=== PATIENT | female | born 1940 | race Caucasian/White ===

== ENCOUNTER → 2017-12-23 08:57 | Outpatient (CLI) | payer MEDICARE, SELFPAY ==
--- NOTE | 2017-12-23 | DI.MG.S_ITS ---
BILATERAL DIGITAL SCREENING MAMMOGRAM 3D/2D WITH CAD: 12/23/2017 CLINICAL: Routine screening. Comparison is made to exams dated: 11/26/2016 mammogram, 04/13/2014 mammogram, and 04/12/2013 mammogram - [facility]. The tissue of both breasts is heterogeneously dense. This may lower the sensitivity of mammography. Current study was also evaluated with a Computer Aided Detection (CAD) system. No significant masses, calcifications, or other findings are seen in either breast. There has been no significant interval change. IMPRESSION: NEGATIVE There is no mammographic evidence of malignancy. A 1 year screening mammogram is recommended. This exam was interpreted at Station ID: [id number]. NOTE: For mammograms, a report in lay terms will be sent to the patient. Approximately 15% of breast malignancies will not be visualized mammographically. In the management of a palpable breast mass, a negative mammogram must not discourage biopsy of a clinically suspicious lesion. Electronically Signed By: Mode gates/toni:12/23/2017 12:49:15 letter sent: Normal Exam ACR BI-RADS Category 1: Negative 3341F
== END ==
PROVIDERS: Family Provider Family Medicine; PCP Family Medicine; Visit Provider Family Medicine
DX: Z12.31 Encounter for screening mammogram for malignant neoplasm of breast (principal)
CPT/HCPCS: 77063; 77067

== ENCOUNTER → 2018-12-26 12:04 | Outpatient (CLI) | payer MEDICARE, SELFPAY ==
--- NOTE | 2018-12-26 | DI.MG.S_ITS ---
BILATERAL DIGITAL SCREENING MAMMOGRAM 3D/2D WITH CAD: 12/26/2018 CLINICAL: Routine screening. Comparison is made to exams dated: 12/23/2017 mammogram, 11/26/2016 mammogram, and 04/13/2014 mammogram - [facility]. The tissue of both breasts is heterogeneously dense. This may lower the sensitivity of mammography. Current study was also evaluated with a Computer Aided Detection (CAD) system. There are benign calcifications in both breasts. No significant masses, calcifications, or other findings are seen in either breast. There has been no significant interval change. IMPRESSION: There is no mammographic evidence of malignancy. A 1 year screening mammogram is recommended. This exam was interpreted at Station ID: [id number]. NOTE: For mammograms, a report in lay terms will be sent to the patient. Approximately 15% of breast malignancies will not be visualized mammographically. In the management of a palpable breast mass, a negative mammogram must not discourage biopsy of a clinically suspicious lesion. Electronically Signed By: Antonino azul/toni:12/26/2018 12:54:51 letter sent: Normal Exam ACR BI-RADS Category 2: Benign Finding(s) 3342F
== END ==
PROVIDERS: PCP Family Medicine; Visit Provider Family Medicine
DX: Z12.31 Encounter for screening mammogram for malignant neoplasm of breast (principal)
CPT/HCPCS: 77063; 77067

== ENCOUNTER → 2019-01-04 13:44 | Outpatient (CLI) | payer MEDICARE, SELFPAY | PROVIDERS: PCP Family Medicine; Visit Provider Family Medicine | DX: M85.851 Other specified disorders of bone density and structure, right thigh (principal); Z78.0 Asymptomatic menopausal state; E07.9 Disorder of thyroid, unspecified; Z90.722 Acquired absence of ovaries, bilateral | CPT/HCPCS: 77080 ==

== ENCOUNTER → 2020-01-12 13:51 | Outpatient (CLI) | payer MEDICARE, SELFPAY ==
[2020-01-14 19:06] LABS: COVID19 Sendout Not Detected (Not Detect)
== END ==
PROVIDERS: PCP Family Medicine; Visit Provider Physician Assistant
DX: Z01.818 Encounter for other preprocedural examination (principal)
CPT/HCPCS: 87635

== ENCOUNTER → 2020-01-19 14:49 | Outpatient (CLI) | payer MEDICARE, SELFPAY ==
[2020-01-22 20:27] LABS: COVID19 Sendout Not Detected (Not Detect)
== END ==
PROVIDERS: PCP Family Medicine; Visit Provider Physician Assistant
DX: Z11.59 Encounter for screening for other viral diseases (principal)
CPT/HCPCS: 87635

== ENCOUNTER → 2020-01-25 07:48 | Outpatient (CLI) | payer MEDICARE, SELFPAY ==
--- NOTE | 2020-01-25 | DI.ECHO.S_ITS ---
[place] [facility]---------+ [facility] +---------+ : : [address] : : : : [id number] : : : : Phone: [phone]+ Echocardiogram Report + + :Name: JIMMY SAVAGE Study Date: 01/25/2020 Height: 63 in : :[facility] Weight: 149 lb : : Gender: Female BSA: 1.7 m2 : :: 1940 Age: 79 yrs BP: 145/88 mmHg: :Reason For Study: DYSPNEA : :Ordering Physician: MIKE, : :ANNA Performed By: Laura Fontanez : :Referring: ANNA MCKEON : + + Interpretation Summary The left ventricle is normal in size and wall thickness. The left ventricular ejection fraction is normal. Diastolic parameters suggest a relaxation abnormality of the left ventricle, consistent with probable normal filling pressures.However, mitral annular tissue velocities are decreased. The right ventricle is normal in size and function. The right ventricular systolic pressure is estimated to be at least 22 mmHg based on an estimated right atrial pressure of 3 mm Hg. Both atria are normal in size. There is mild mitral regurgitation. There is mild aortic regurgitation. There is no prior echocardiogram noted for this patient. Procedure: A two-dimensional transthoracic echocardiogram with color flow and Doppler was performed. The study quality was technically adequate. There is no prior echocardiogram noted for this patient. The heart rate ranged between 55-71 bpm during the study. Left Ventricle: The left ventricle is normal in size and wall thickness. The ejection fraction is estimated to be 60-65%. The left ventricular ejection fraction is normal. There are no focal wall motion abnormalities. Diastolic parameters suggest a relaxation abnormality of the left ventricle, consistent with probable normal filling pressures. However, mitral annular tissue velocities are decreased. Right Ventricle: The right ventricle is normal in size and function. Atria: Both atria are normal in size. There is no Doppler evidence for an interatrial shunt. Mitral Valve: The mitral valve leaflets appear normal. There is no evidence of stenosis, fluttering, or prolapse. There is mild mitral regurgitation. Aortic Valve: The aortic valve is trileaflet. The aortic valve opens well. There is no aortic valve stenosis. There is mild aortic regurgitation. Tricuspid Valve: The tricuspid valve is normal in structure and function. There is mild to moderate tricuspid regurgitation. The right ventricular systolic pressure is estimated to be at least 22 mmHg based on an estimated right atrial pressure of 3 mm Hg. Pulmonic Valve: The pulmonic valve is not well visualized. There is trace pulmonic regurgitation. Great Vessels: The aortic root is normal size. The ascending aorta is mildly enlarged. The IVC is of normal diameter and collapses greater than 50% with a sniff. This suggests a low right atrial pressure of 3 mm Hg. Pericardium/ Pleura There is no pericardial effusion. There is no pleural effusion. MMode/2D Measurements & Calculations LVIDd: 4.3 cm LVOT diam: 2.0 cm LVIDs: 2.7 cm Ao root diam: 2.8 cm FS: 37.9 % asc Aorta Diam: 3.5 cm EPSS: 0.80 cm Ao Arch Diam (Prox Trans): 2.8 cm IVSd: 1.0 cm LVPWd: 0.82 cm LV ponce. diameter/BSA (cm/m^2): 2.5 LV sys. diameter/BSA (cm/m^2): 1.6 LA A2 area: 19.3 cm2 RA long axis: 4.2 cm LA A4 area: 15.5 cm2 RA area: 15.1 cm2 LA length (vol): 4.7 cm RA vol: 46.2 ml LA vol: 54.2 ml RA : 27.1 ml/m2 LA vol index: 31.7 ml/m2 IVC diam: 1.1 cm RVD1 (basal): 3.1 cm TAPSE: 2.2 cm Doppler Measurements & Calculations Ao V2 max: 116.1 cm/sec LVOT Max Giovanny: 97.0 cm/sec Ao V2 mean: 82.4 cm/sec LV V1 max P.8 mmHg Ao max P.4 mmHg LV V1 VTI: 22.1 cm Ao mean P.0 mmHg DYLAN(I,D): 2.5 cm2 Ao V2 VTI: 27.3 cm DYLAN(V,D): 2.6 cm2 sev ratio: 0.81 DYLAN indexed to BSA (cm^2/m^2): 1.5 MV E max giovanny: 55.3 cm/sec TR max giovanny: 219.3 cm/sec MV A max giovanny: 84.4 cm/sec TR max P.2 mmHg MV E/A: 0.65 PA V2 max: 56.4 cm/sec Med Peak E' Giovanny: 3.1 cm/sec PA V2 mean: 36.4 cm/sec E/E' med: 17.9 PA mean P.62 mmHg Lat Peak E' Giovanny: 3.6 cm/sec PA pr(Accel): 19.1 mmHg E/E' lat: 15.2 E/e' average: 16.6 MV dec time: 0.33 sec SV(LVOT): 68.5 ml Electronically signed by: Jesus Alcantara M.D. on Reading Physician:01/25/2020 10:48 AM
== END ==
PROVIDERS: PCP Family Medicine; Referring Provider Family Medicine; Visit Provider Family Medicine
DX: I08.3 Combined rheumatic disorders of mitral, aortic and tricuspid valves (principal); R06.09 Other forms of dyspnea; I77.89 Other specified disorders of arteries and arterioles
CPT/HCPCS: 93306

== ENCOUNTER → 2020-02-28 10:32 | Outpatient (CLI) | payer MEDICARE, SELFPAY ==
--- NOTE | 2020-02-28 10:47 | DI.MG.S_ITS ---
Patient Name: JIMMY SAVAGE date: 1940 Sex: F Attending Physician: Zahra Indications: Date: 02/28/2020 10:37 At the request of: ANNA MCKEON Procedure: MM screening mammo BI BILATERAL DIGITAL SCREENING MAMMOGRAM 3D/2D WITH CAD: 02/28/2020 CLINICAL: Routine screening. Comparison is made to exams dated: 12/26/2018 mammogram, 12/23/2017 mammogram, and 11/26/2016 mammogram - [facility]. The tissue of both breasts is heterogeneously dense. This may lower the sensitivity of mammography. Current study was also evaluated with a Computer Aided Detection (CAD) system. There is a focal asymmetry in the left breast at 4 o'clock posterior depth. There also is a focal asymmetry in the left breast at 10 o'clock middle depth. No other significant masses, calcifications, or other findings are seen in either breast. IMPRESSION: INCOMPLETE: NEEDS ADDITIONAL IMAGING EVALUATION The focal asymmetry in the left breast at 4 o'clock posterior depth is indeterminate. Additional views with possible ultrasound are recommended. The focal asymmetry in the left breast at 10 o'clock middle depth is indeterminate. Additional views with possible ultrasound are recommended. This exam was interpreted at Station ID: [id number]. NOTE: For mammograms, a report in lay terms will be sent to the patient. Approximately 15% of breast malignancies will not be visualized mammographically. In the management of a palpable breast mass, a negative mammogram must not discourage biopsy of a clinically suspicious lesion. Electronically Signed By: Angeles ortega/toni:02/28/2020 11:29:40 Continued Report - Page 2 of 2 Patient Name: JIMMY SAVAGE date: 1940 Sex: F Attending Physician: Zahra Indications: Date: 02/28/2020 10:37 At the request of: ANNA MCKEON Procedure: MM screening mammo BI letter sent: Additional Imaging Needed ACR BI-RADS Category 0: Incomplete 3340F
== END ==
PROVIDERS: PCP Family Medicine; Referring Provider Family Medicine; Visit Provider Family Medicine
DX: Z12.31 Encounter for screening mammogram for malignant neoplasm of breast (principal)
CPT/HCPCS: 77063; 77067

== ENCOUNTER → 2020-04-14 08:39 | Outpatient (CLI) | payer MEDICARE, SELFPAY ==
[2020-04-15 16:02] LABS: COVID19 Sendout Not Detected (Not Detect)
== END ==
PROVIDERS: PCP Family Medicine; Visit Provider Physician Assistant
DX: Z11.59 Encounter for screening for other viral diseases (principal)
CPT/HCPCS: 87635

== ENCOUNTER → 2020-04-17 07:00 | Outpatient (CLI) | payer MEDICARE, SELFPAY ==
--- NOTE | 2020-04-17 | DI.MG.S_ITS ---
PROCEDURE: MM DIAGNOSTIC MAMMO UNILAT LT2D COMPARISON: None. INDICATIONS: LEFT BREAST MASS FINDINGS: IMPRESSION: Dictated by: Zara Kim MD, PhD on 04/17/2020 at 9:36 Approved by: Zara Kim MD, PhD on 04/17/2020 at 9:36
--- NOTE | 2020-04-17 | DI.MG.S_ITS ---
SPECIMEN LEFT BREAST: 04/17/2020 CLINICAL: Left breast mass. Correlation is made to exams dated: 04/17/2020 mammogram, 04/17/2020 localization - [facility], 03/15/2020 ultrasound biopsy, 03/11/2020 mammogram - [facility], and 02/28/2020 mammogram - [facility]. A surgical biopsy specimen was imaged for the mass located in the left breast at 4 o'clock posterior depth. IMPRESSION: SPECIMEN The imaged specimen includes a biopsy clip and the distal portion of the localization wire. Future imaging is recommended as follows: 09/08/2020 left mammogram and an ultrasound. This exam was interpreted at Station ID: [id number]. Zara santana/toni:04/19/2020 16:22:45
--- NOTE | 2020-04-17 07:05 | DI.US.S_ITS ---
PROCEDURE: US BREAST NEEDLE LOC LT COMPARISON: None. INDICATIONS: PRE-OP WIRE LOCALIZATION FINDINGS: IMPRESSION: Dictated by: Zara Kim MD, PhD on 04/17/2020 at 9:39 Approved by: Zara Kim MD, PhD on 04/17/2020 at 9:39
== END ==
PROVIDERS: PCP Family Medicine; Referring Provider Surgery; Visit Provider Surgery
DX: N63.23 Unspecified lump in the left breast, lower outer quadrant (principal); N63.20 Unspecified lump in the left breast, unspecified quadrant
CPT/HCPCS: 19285; 76098; 77065

== ENCOUNTER 2020-04-17 07:09 | Day surgery (SDC) | payer MEDICARE, SELFPAY ==
[2020-04-15 10:50] VITALS: BMI 25.2
--- NOTE | 2020-04-17 | PATH_ITS ---
[facility] Accession Number: [id number] . 01 Material submitted: . PART A: breast - LEFT BREAST PART B: breast - MEDIAL MARGIN . 01 Clinical history: . A: LEFT BREAST MASS SHORT SINGLE STITCH MEDIAL LONG STITCH LATERAL, DOUBLE STITCH DEEP. . 02 Diagnosis: A. Left Breast, Lumpectomy: 1. 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 2. Focal atypical lobular hyperplasia. 3. Fibroadenoma, hyalinized. 4. Fibrocystic changes including apocrine metaplasia, duct ectasia, microcysts, and florid hyperplasia. 5. Microcalcifications present in association with nonneoplastic breast tissue 6. Changes consistent with prior biopsy. 7. Negative for atypical hyperplasia, in situ, or invasive carcinoma. . . B. Medial Margin, Excision: Benign breast tissue with fibrocystic changes including usual ductal hyperplasia, apocrine metaplasia, and microcysts. Negative for atypical hyperplasia, in situ and invasive carcinoma. [facility] 04/26/2020 0821 Local . 02 Comment: As part of routine director of quality improvement, Dr. Ortiz also reviewed part A1-A14 and IHCs and agrees with the interpretation of intraductal papilloma with usual ductal hyperplasia. . 02 Electronically signed: . Abiola Chavez MD, Pathologist NPI- [id number] . 01 Gross description: . A. Specimen A is received in formalin, labeled left breast mass and consists of a lumpectomy specimen. . Weight: 21 grams. Measurement: 2.2 cm from anterior to posterior, 6.2 cm from medial to lateral, and 4.2 cm from superior to inferior. Skin Ellipse: Absent. Wire: Present, free floating within the specimen container. Margins: Posterior black, anterior red, superior blue, inferior green, medial yellow, and lateral orange. The specimen is serially sectioned from lateral to medial into sixteen slices. Lesion: 0.5 x 0.4 x 0.4 cm gómez-white biopsy site with a filter metallic, circular biopsy marker (slices 3 and 4). Distance to Margin: 0.5 cm from anterior, 0.3 cm from inferior, 0.8 cm from posterior, 1.6 cm from superior, 1.0 cm from lateral and greater than 3 cm from medial. Other: The remaining cut surfaces are composed of approximately 75% gómez-yellow adipose tissue and 25% gómez-white fibrous tissue. Multiple cysts are located throughout the adipose tissue, ranging from 0.1 to 0.2 cm. The specimen is entirely submitted. . A1 - Slice 1, lateral margin, perpendicularly sectioned. A2 - Slice 2, immediately lateral to biopsy site. A3 - Slice 3, biopsy site in relation to anterior, inferior, and posterior margins. A4 - Remainder of slice 3, superior, anterior and posterior margins. A5 - Slice 4, biopsy site in relation to anterior, inferior and deep margins. A6 - Remainder of slice 4, superior, anterior and posterior margins. A7-A8 - Slice 5, immediately medial to biopsy site. A9 - Slice 6. A10-A11 - Slice 7, bisected. A12-A13 - Slice 8, bisected. A14-A15 - Slice 9, bisected. A16-A17 - Slice 10, bisected. A18-A19 - Slice 11, bisected. A20 - Slice 12, bisected. A21 - Slice 13. A22 - Slice 14. A23 - Slice 15. A24 - Slice 16, medial margin, perpendicularly sectioned. . Formalin fixation time: Approximately 26 hours. B. Specimen B is received in formalin, labeled medial margin and consists of two gómez-yellow fragments of fibroadipose tissue, measuring 3.0 x 3.0 x 1.5 cm in aggregate. The specimen is inked blue, serially sectioned and entirely submitted in cassettes B1-B3. (EA:[id number]) /[facility] 04/18/[address] [place] [address] . Microscopic: . Immunohistochemical stains were performed to characterize cells of interest. All control stains showed appropriate reactivity. . Block A7: P63 and myosin highlight myoepithelial cells surrounding area of interest, and a continuous pattern within the papilloma. Estrogen Receptor and CK5/6 were performed to characterize the proliferative ductal cells in an area of interest, and although the area of interest is not represented on the deeper levels, the stains highlight the ductal proliferation in a heterogenous pattern. . Block A14: E-cadherin stain is negative in cells of interest, consistent with atypical lobular hyperplasia. . Blocks A5, A7, B3: Additional levels were examined. . Interpretation: A7: The pattern of p63 and myosin expression is consistent with an intraductal proliferation. The heterogeneous pattern of ER and CK5/6 is consistent with a nonclonal ductal proliferation. . * This test was developed and its performance characteristics determined by [employer]. It has not been cleared or approved by the U.S. Food and Drug Administration. The FDA has determined that such clearance or approval is not necessary. This test is used for clinical purposes. It should not be regarded as investigational or for research. . 02 Pathologist provided ICD-10: N63.20, N64.9 . 02 CPT . 372193, 041747, B74986, D66152 Performed at: 01 [facility] [address] [id number] MD Matt Johnson MD Phone: [phone] Performed at: 02 [facility] [id number] [place] [id number] MD Abiola Chavez MD Phone: [phone]
[2020-04-17 07:29] VITALS: BP 116/64; PULSE 74; RESP 16; TEMP 37.2; O2SAT 97; BMI 25.0
--- NOTE | 2020-04-17 09:15 | SUR.PREOP ---
PT RETURNED FROM DI VIA W/C. PT TRANSFERRED SELF BACK INTO STRETCHER WITHOUT ANY DIFFICULTLY. PT BED IN LOWEST POSITION AND CALL LIGHT GIVEN TO PT. PT APPEARS COMFORTABLE AT THIS TIME.
--- NOTE | 2020-04-17 12:31 | PM.PREOP ---
Pre-operative Note COVID-19 COVID-19 status: Negative Result date/Date tested (Pos, Neg/Pending): 04/14/20 Interval Note History & Physical reviewed/Exam performed by Physician: Yes Changes to H&P: No
[2020-04-17] MEDS: CEFAZOLIN 2 GM/100 ML FROZ.PIGGY IV (13:09)
--- NOTE | 2020-04-17 13:34 | SUR.OPER ---
Supine on padded OR bed, head on pillow, arms secured on padded arm boards at <90 degrees abduction, legs uncrossed, safety belt at thigh, tape over blanket over lower legs.
[2020-04-17] MEDS: BUPIVACAINE 0.25% W/ EPI 30 ML VIAL INJ (13:41)
[2020-04-17 14:18] VITALS: BP 110/53; PULSE 91; RESP 12; TEMP 35.9; O2SAT 93
[2020-04-17 14:24] VITALS: BP 106/34; PULSE 86; RESP 16; O2SAT 95
[2020-04-17 14:27] VITALS: BP 109/53; PULSE 88; RESP 15; O2SAT 93
--- NOTE | 2020-04-17 14:32 | P.OP_ITS ---
Operative Date/Time/Diagnoses Date of procedure: 04/17/20 Time of procedure: 14:33 Pre-op diagnosis: Left breast mass Post-op diagnosis: same Procedure & Clinicians Procedure: Left breast lumpectomy Same procedure as scheduled: Yes Indications: Left breast mass with suspicious features, here for definitive excisional biopsy Surgeon: Angela Gaitan Click Yes if Unassisted: Yes Anesthesia Type: General Operative Notes Findings: Clip and wire in the expected position Specimen(s): other (Left breast mass; single short stitch medial, long single stitch lateral, double stitch deep) Estimated Blood Loss (mL): 1 Procedure in detail: The patient was brought into the OR and placed supine on the OR table. Sequential compression devices were placed on both legs and turned on. General anesthesia was induced and the patient was intubated by Dr. Martinez with an LMA. Appropriate perioperative antibiotics were given. Surgical time out was performed. The sterile US probe was used to identify the wire and clip within the breast. The breast was marked for an appropriate incision. Local anesthetic was infiltrated in the skin at this site. A 15 blade was then used to make a 6cm curvilinear incision in the skin at this site. Dissection was carried down through the dermis using a 15 blade. Cautery was then used to dissect to the avascular plane between the subcutaneous fat and the breast tissue. Dissection was carried along this plane using after infiltration of local anesthetic. The localization wire was identified and palpated to its endpoint. The clip was also identified visually and with palpation. Dissection was then carried around the mass, with a small margin. Once the mass was co mpletely dissected out it was delivered from the wound it was marked using silk suture. Double stitch deep, long single stitch lateral, short single stitch medial. Local anesthetic with Marcaine was used to inject the skin and subcutaneous tissue, as well as the chest wall. Good hemostasis was observed. The radiologist then phoned to tell us that the specimen did include the wire and clip as expected. 3-0Vicryl was used to then bring together the subcutaneous fat tissue, and to close the dermis of the breast incision and the axillary incision. 4-0 Monocryl was used to close the skin with a subcuticular suture. The skin was then sealed with dermabond. A breast support was placed on the patient. The patient was then awakened from anesthesia and extubated. Needle sponge and instrument counts were correct x 2. The patient was transferred to the PACU in stable condition. Complications: none Post-operative Condition: stable Disposition: PACU
[2020-04-17 14:37] VITALS: BP 118/50; PULSE 93; RESP 14; TEMP 37; O2SAT 94
[2020-04-17 14:43] VITALS: BP 118/53; PULSE 81; RESP 16; TEMP 36.2; O2SAT 96
--- NOTE | 2020-04-17 14:59 | SUR.PHASEII ---
Ptup and ambulating gait steady, getting dressed after iv dcd site clear, will draft roller picker rx at [facility] per Dr Bustamante direction. all dc instructions givena dn pt verbalizes understanding. No c/0
== END 2020-04-17 14:59 | disposition home or self-care (01) ==
PROVIDERS: PCP Family Medicine; Referring Provider Family Medicine; Visit Provider Surgery
PROC: (CPT 19301; principal; 2020-04-17 11:45)
DX: D24.2 Benign neoplasm of left breast (principal); E03.9 Hypothyroidism, unspecified; I10 Essential (primary) hypertension; Z85.038 Personal history of other malignant neoplasm of large intestine
CPT/HCPCS: 19301; 19285; 76098; 77065; J0690; J1100; J1885; J2405; J2704; J3010

== ENCOUNTER → 2020-12-10 10:49 | Outpatient (CLI) | payer MEDICARE, SELFPAY ==
[2020-12-12 20:36] LABS: Pancreatic Elastase, Fecal 289 (>200)
== END ==
PROVIDERS: Family Provider Family Medicine; PCP Family Medicine; Referring Provider Internal Medicine Gastroenterology; Visit Provider Internal Medicine Gastroenterology
DX: R19.7 Diarrhea, unspecified (principal)
CPT/HCPCS: 82656

== ENCOUNTER → 2020-12-20 13:56 | Outpatient (CLI) | payer MEDICARE, SELFPAY ==
[2020-12-24 15:51] LABS: Calcitonin 6.7 pg/mL (0.0-5.0); Gastrin 18 pg/mL (0-115)
[2020-12-29 09:39] LABS: 5-HIAA, Urine 1.2 mg/L (Undefined)
== END ==
PROVIDERS: Family Provider Family Medicine; PCP Family Medicine; Referring Provider Internal Medicine Gastroenterology; Visit Provider Internal Medicine Gastroenterology
DX: R19.7 Diarrhea, unspecified (principal)
CPT/HCPCS: 36415; 82308; 82570; 82941; 83497; 84586

== ENCOUNTER → 2021-01-11 07:54 | Outpatient (CLI) | payer MEDICARE, SELFPAY ==
[2021-01-11 08:13] LABS: Bacteria Urine None Seen
[2021-01-11 10:27] LABS: Add Manual Diff / Slide Review NO; Basophils Absolute Auto 0 /uL (0-100); Basophils Percent Auto 0.4 % (0-2); Eosinophils Absolute Auto 0 /uL (0-450); Eosinophils Percent Auto 0.8 % (2-4); Hematocrit 40.5 % (36-46); Hemoglobin 13.8 g/dL (12.0-16.0); Lymphocytes Absolute Auto 1300 /uL (1100-4500); Lymphocytes Percent Auto 31.2 % (25-40); Mean Corpuscular Hemoglobin 31.4 PG (26-34); Mean Corpuscular Volume 92.2 fL (80-100); Monocytes Absolute Auto 400 /uL (0-900); Monocytes Percent Auto 8.8 % (3-14); Neutrophils Absolute Auto 2500 /uL (1500-7000); Neutrophils Percent Auto 58.8 % (50-75); Platelet Count 231 X10^3/uL (150-400); Red Blood Cell Count 4.39 X10^6/uL (4.0-5.2); Red Cell Distribution Width 13.7 % (11.6-14.8); White Blood Cell Count 4.3 X10^3/uL (4.5-11.0)
[2021-01-11 10:43] LABS: Appearance Urine UA CLEAR; Bilirubin Urine UA NEGATIVE (NEGATIVE); Color Urine UA YELLOW; Glucose Urine UA NEGATIVE (Negative); Ketones Urine UA NEGATIVE (NEGATIVE); Leukocyte Esterase Urine UA 2+ (NEGATIVE); Nitrite Urine UA NEGATIVE (Negative); Occult Blood Urine UA TRACE-INTACT (Negative); Protein Urine UA NEGATIVE (Negative); Specific Gravity Urine UA <=1.005 (1.000-1.035); Urobilinogen Urine UA 0.2 E.U./dL (0.2)
[2021-01-11 10:44] LABS: Culture Indicated Urine Specimen Cultured; RBC Urine 0-1/HPF (0-5/HPF); Renal Epithelial Cells Urine 0-1/HPF (0-1/HPF); Urine Comments QNS SPINNING; WBC Urine 5-10/HPF (0-5/HPF)
[2021-01-11 10:49] LABS: Alanine Aminotransferase 16 IU/L (<35); Albumin 4.2 g/dL (3.5-5.0); Albumin Globulin Ratio 1.4 (1.0-2.8); Alkaline Phosphatase 80 U/L (38-126); Aspartate Aminotransferase 31 IU/L (14-36); BUN Creatinine Ratio 23.7 (6-22); Bilirubin Total 0.5 mg/dL (0.2-1.3); Blood Urea Nitrogen 14 mg/dL (7-17); Calcium 9.8 mg/dL (8.4-10.2); Carbon Dioxide 29 mmol/L (22-32); Chloride 103 mmol/L (98-107); Estimated Glomerular Filt Rate > 60.0 mL/min (>60); Globulin 2.9 g/dL (1.7-4.1); Glucose 94 mg/dL (80-110); HEMOLYSIS < 15 (0-50); Potassium 4.4 mmol/L (3.4-5.1); Sodium 137 mmol/L (137-145); Total Protein 7.1 g/dL (6.3-8.2); Uric Acid 3.8 mg/dL (2.5-6.2)
[2021-01-11 10:52] LABS: Hemoglobin A1C% w Est Avg Glu 5.4 % (4.0-6.0)
[2021-01-11 11:12] LABS: Free T4, Direct Thyroxine 1.29 ng/dL (0.78-2.19)
[2021-01-11 11:26] LABS: Thyroid Stimulating Hormone 3.97 uIU/mL (0.47-4.68)
[2021-01-11 15:52] LABS: Collection Time Urine 2400 Hours; Total Volume Urine 4800 mL
[2021-01-11 15:53] LABS: Patient Height Urine 184 inches; Patient Weight Urine 150 lbs
[2021-01-11 15:58] LABS: Creatinine, Serum (CRCL) 0.59 mg/dL (0.52-1.04)
[2021-01-11 17:16] LABS: Creatinine Clearance Urine 111.3 mL/MIN; Creatinine Urine Random 19.7 mg/dL; Protein (Total) Urine Random 13 mg/dL (0-12); Total Protein 24 Hour Urine 624 mg/day (42-225)
[2021-01-12 10:58] LABS: Cholesterol HDL Ratio 2.5 ratio (0.0-4.4); Cholesterol,Total 246 mg/dL (100-199); HDL Cholesterol 97 mg/dL (>39); LDL Cholesterol Cal 135 mg/dL (0-99); Triglycerides 83 mg/dL (0-149); VLDL Cholesterol Cal 14 mg/dL (5-40)
[2021-01-14 09:16] LABS: Normetanephrine Total 346 ug/24 hr (131-612); Urine, Metanephrine 21 ug/L (Undefined); Urine, Normetanephrine 72 ug/L (Undefined)
[2021-01-17 08:46] LABS: 5-HIAA, UR 24HR 7.2 mg/24 hr (0.0-14.9); 5-HIAA, Urine 1.5 mg/L (Undefined)
== END ==
PROVIDERS: Family Provider Family Medicine; PCP Family Medicine; Referring Provider Family Medicine; Visit Provider Family Medicine
DX: E89.0 Postprocedural hypothyroidism (principal); I10 Essential (primary) hypertension; R19.7 Diarrhea, unspecified; Z86.39 Personal history of other endocrine, nutritional and metabolic disease
CPT/HCPCS: 36415; 80053; 80061; 81001; 82575; 83036; 83088; 83497; 83835; 84156; 84439; 84443; 84550; 85025; 87086

== ENCOUNTER 2021-01-13 10:30 | Outpatient (RCR) | payer MEDICARE, SELFPAY ==
--- NOTE | 2020-12-05 16:00 | PT.OIE ---
Current Diagnoses Lesion of sciatic nerve, right lower limb (12/05/20) Radiculopathy, lumbar region (12/05/20) Past Medical History (Last Reviewed 05/02/20 @ 11:14 by Angela Gaitan MD) Diverticulosis Headache, migraine History of colon cancer (~2003) Hx of breast lump Past Surgical History (Last Reviewed 05/02/20 @ 11:14 by Angela Gaitan MD) Hx of colectomy (2003) Hx of hysterectomy (~1989) Visit Care Team Role Provider Type Marisel Sweeney MD Attending Provider Physician Family Provider Primary Care Provider Referring Provider Specialty: Family Practice Address: [address] [place] [address], [facility] Email: [email or web address] Physical Therapy Initial Evaluation PT-OP-A Visit Information Start: 12/06/20 10:41 Freq: Status: Active Protocol: Document 12/05/20 16:00 HH (Rec: 12/06/20 11:08 [email or web address]) Out-Patient Physical Therapy Visit Information Visit Information Visit Type Initial Evaluation Visit Start Time 14:30 Visit Stop Time 15:15 Total Visit Minutes 45 Visit Number 07/09 Number of LEARNING AND DEVELOPMENT OFFICER Visits 0 Evaluation Information Evaluation Date 12/05/20 PT-OP-B Current Condition Start: 12/06/20 10:41 Freq: Status: Active Protocol: Document 12/05/20 16:00 HH (Rec: 12/06/20 11:08 [email or web address]) Current Condition History of Current Condition Onset Date June Current Complaints R lateral hip and thigh pain, difficulty to sleep History of Current Condition Renita is a 80yo female here for her R lateral hip and thigh pain since this June. No known injury. She stated her pain started one night while sleeping which her pain located below her greater trochanter and radiates down to lateral knee. Pt is a side sleeper and she realize sleeping on her back tends to relieve her symptoms. Walking for long distance and sitting for a long period of time tends to aggrave her pain as well. She has been taking ibuprofen and stretching her hips for pain management. Treatment Goals Patient/Caregiver Goals 1. to be able to sleep on her R side again PT-OP-C Subjective Start: 12/06/20 10:41 Freq: Status: Active Protocol: Document 12/05/20 16:00 HH (Rec: 12/06/20 11:08 [email or web address]) Patient Questionnaires Lower Extremity Functional Scale LEFS Score 74 LEFS Impairment 1 to 19% Impaired (Score 63-79 ) Oswestry Low Back Index Oswestry Score 16 Oswestry Impairment 1 to 19% Impaired (Score 1-19) OP-PT Pain Assessment Location R lateral hip Pain Location Details below greater trochanter and lateral knee Intensity 6 Scale Used Numeric (0 - 10) Description Aching,Dull,Radiating Pain Aggravating Factors Position,Changing Position, Exercise,Standing,Walking, Stair Climbing Pain Alleviating Factors Inactivity PT-OP-D Balance Start: 12/06/20 10:41 Freq: Status: Active Protocol: Document 12/05/20 16:00 HH (Rec: 12/06/20 11:08 [email or web address]) Balance Tests Single Limb Standing Single Limb- Right 20,50 (tredelenburg sign) Single Limb- Left 16,60 PT-OP-G Mobility & Gait Start: 12/06/20 10:41 Freq: Status: Active Protocol: Document 12/05/20 16:00 HH (Rec: 12/06/20 11:08 [email or web address]) OP Gait Assessment Comments Gait Comments dec stance phase on RLE, mild tredelenburg sign noted. PT-OP-H Neuro Start: 12/06/20 10:41 Freq: Status: Active Protocol: Document 12/05/20 16:00 HH (Rec: 12/06/20 11:08 [email or web address]) Sensation Evaluation Comments Summary Comments mild decreased sensation to LT and pinpick from lateral thigh to lateral gastro Deep Tendon Reflex & Clonus Assessment Deep Tendon Reflex Bilateral Achilles Deep Tendon Reflex 2+ Normal Bilateral Patellar Deep Tendon Reflex 2+ Normal PT-OP-K Range of Motion Start: 12/06/20 10:41 Freq: Status: Active Protocol: Document 12/05/20 16:00 HH (Rec: 12/06/20 11:08 [email or web address]) Hip Goniometric Range of Motion Hip Right Active Straight Leg Raise 63 Internal Rotation 45 External Rotation 36 Comments pt felt significant pulling sensation with figure 4 position Left Active Straight Leg Raise 70 Internal Rotation 40 External Rotation 45 Knee Goniometric Range of Motion Knee Right Knee ROM WFL Yes Comments WFL Left Knee ROM WFL Yes Comments WFL PT-OP-L Special Tests Start: 12/06/20 10:41 Freq: Status: Active Protocol: Document 12/05/20 16:00 (Rec: 12/06/20 11:08 [email or web address]) Special Tests Lumbar Spine Special Tests Slump Test Results -ve Hip Special Tests ELVIA Test Results -ve B Trendelenberg Test Results +VE R Comments during SL stance FADDIR Test Results -ve B COOPER Test Results +VE R Comments pain and stretching at R buttock Scour Test Test Results -ve B Straight Leg Raise Test Results -ve B PT-OP-Q Treatments Start: 12/06/20 10:41 Freq: Status: Active Protocol: Document 12/05/20 16:00 (Rec: 12/06/20 11:08 [email or web address]) Therapeutic Exercises Supine Exercises figure 4 stretch Side right Reps/Minutes 15 sec hold x 5 Comments for hEP PT-OP-T Assessment and Plan Start: 12/06/20 10:41 Freq: Status: Active Protocol: Document 12/05/20 16:00 (Rec: 12/06/20 11:08 [email or web address]) Physical Therapy Assessment Rehab Potential Rehabilitation Potential Excellent Evaluation Complexity Number of Personal Factors/Comorbidities 1-2 Number of Body Systems Impaired 1-2 Clinical Presentation at Evaluation Stable Impairments Impairments Activity Tolerance,Balance, Functional Activities, Functional Mobility,Gait,Pain, Posture,ROM,Soft Tissue Mobility,Strength,Transfers Goals gait Impairment +ve trendelenburg sign Short Term Goal (STG) pt will show improved R hip ER and hip stability to reduce her trendelenburg sign during stance phase STG Duration 4 weeks Halfway Goal (LTG) pt will show improved R hip ER and hip stability to reduce her knee valgus moment during squatting activities. LTG Duration 8 weeks activity tolerance Impairment unable to sit or walk >1 hour Short Term Goal (STG) pt will be able to sit/ walk > 1 hour without increase in discomfort STG Duration 4 weeks Bindery Assistant Goal (LTG) pt will be able to sit/ walk > 2 hour without increase in discomfort LTG Duration 8 weeks sleep Impairment significant pain sleeping on her R side Short Term Goal (STG) pt will show improved pain by being able to sleep on her R side without waking up >3 days a week STG Duration 4 weeks Bindery Assistant Goal (LTG) pt will show improved pain by being able to sleep on her R side without waking up for the entire week LTG Duration 8 weeks Assessment Summary Assessment Renita is a 80 yo active female here for her R lateral hip and knee pain since June. Upon assessment, pt presents symptoms of IT band syndrome whose pain locates mostly at mid IT band to lateral knee joint. She also has trigger point at glute med and TFL region. There's noticeable knee valgus moment with her gait and stand posture (hip Internal rotated with external rotated tibia) She will benefit from skilled therapy to improve her R hip ER, stability, strength to reduce mechanical stress at her IT band. Physical Therapy Plan Frequency and Duration Frequency of Treatment 1-2x/wk Duration of Treatment 8 weeks Plan of Care Start Date 12/06/20 Plan of Care End Date 02/04/21 Therapeutic Interventions Therapeutic Interventions Aquatic Therapy,Balance Training,Gait Training,Home Exercise Program,Joint Mobilizations,Manual Therapy, Neuromuscular Re-education, Patient/Caregiver Education, Self-Care/Home Management,Soft Tissue Mobilization,Taping, Therapeutic Activities, Therapeutic Exercises Modalities Cold Pack/Ice Massage,Electric Stimulation,Hot Packs, Infrared Therapy,Traction- Mechanical,Ultrasound Next Visit Focus/Plan Next Note Type Treatment Note Next Visit Plan review figure4 stretch clamshell lateral quad release bridging open book stretch
--- NOTE | 2020-12-05 16:00 | PT.OPPOC ---
Physical, Occupational & Speech Therapy At [facility] Current Diagnoses Lesion of sciatic nerve, right lower limb (12/05/20) Radiculopathy, lumbar region (12/05/20) Visit Care Team Role Provider Type Marisel Sweeney MD Attending Provider Physician Family Provider Primary Care Provider Referring Provider Specialty: Family Practice Address: [address] [place] [address], [facility] [place], [facility] Email: Plan Of Care PT-OP-T Assessment and Plan Start: 12/06/20 10:41 Freq: Status: Active Protocol: Document 12/05/20 16:00 (Rec: 12/06/20 11:08 [email or web address]) Physical Therapy Assessment Rehab Potential Rehabilitation Potential Excellent Evaluation Complexity Number of Personal Factors/Comorbidities 1-2 Number of Body Systems Impaired 1-2 Clinical Presentation at Evaluation Stable Impairments Impairments Activity Tolerance,Balance, Functional Activities, Functional Mobility,Gait,Pain, Posture,ROM,Soft Tissue Mobility,Strength,Transfers Goals gait Impairment +ve trendelenburg sign Short Term Goal (STG) pt will show improved R hip ER and hip stability to reduce her trendelenburg sign during stance phase STG Duration 4 weeks Drone Operator Goal (LTG) pt will show improved R hip ER and hip stability to reduce her knee valgus moment during squatting activities. LTG Duration 8 weeks activity tolerance Impairment unable to sit or walk >1 hour Short Term Goal (STG) pt will be able to sit/ walk > 1 hour without increase in discomfort STG Duration 4 weeks Retirement Goal (LTG) pt will be able to sit/ walk > 2 hour without increase in discomfort LTG Duration 8 weeks sleep Impairment significant pain sleeping on her R side Short Term Goal (STG) pt will show improved pain by being able to sleep on her R side without waking up >3 days a week STG Duration 4 weeks Drone Operator Goal (LTG) pt will show improved pain by being able to sleep on her R side without waking up for the entire week LTG Duration 8 weeks Assessment Summary Assessment Renita is a 80 yo active female here for her R lateral hip and knee pain since June. Upon assessment, pt presents symptoms of IT band syndrome whose pain locates mostly at mid IT band to lateral knee joint. She also has trigger point at glute med and TFL region. There's noticeable knee valgus moment with her gait and stand posture (hip Internal rotated with external rotated tibia) She will benefit from skilled therapy to improve her R hip ER, stability, strength to reduce mechanical stress at her IT band. Physical Therapy Plan Frequency and Duration Frequency of Treatment 1-2x/wk Duration of Treatment 8 weeks Plan of Care Start Date 12/06/20 Plan of Care End Date 02/04/21 Therapeutic Interventions Therapeutic Interventions Aquatic Therapy,Balance Training,Gait Training,Home Exercise Program,Joint Mobilizations,Manual Therapy, Neuromuscular Re-education, Patient/Caregiver Education, Self-Care/Home Management,Soft Tissue Mobilization,Taping, Therapeutic Activities, Therapeutic Exercises Modalities Cold Pack/Ice Massage,Electric Stimulation,Hot Packs, Infrared Therapy,Traction- Mechanical,Ultrasound Next Visit Focus/Plan Next Note Type Treatment Note Next Visit Plan review figure4 stretch clamshell lateral quad release bridging open book stretch Plan of Care Dates Plan of Care Start Date 12/06/20 Plan of Care End Date 02/04/21 Electronically Signed by: Elijah Brunson, PT 12/06/20 0423 Please Sign and Return: I have reviewed this Plan of Care and certify that the skilled therapy services above are required to meet the patient?s needs. Physician Signature Date Printed Name and Credentials Clinical Instructor Signature Printed Name and Credentials
--- NOTE | 2020-12-11 14:28 | PT.OTN ---
Current Diagnoses Lesion of sciatic nerve, right lower limb (12/11/20) Radiculopathy, lumbar region (12/11/20) Physical Therapy Treatment Note PT-OP-A Visit Information Start: 12/06/20 10:41 Freq: Status: Active Protocol: Document 12/11/20 13:44 HH (Rec: 12/11/20 14:28 [email or web address]) Out-Patient Physical Therapy Visit Information Visit Information Visit Type Treatment Note Visit Start Time 13:46 Visit Stop Time 14:30 Total Visit Minutes 44 Visit Number / Number of PUBLIC SERVICE OFFICER Visits 0 PT-OP-B Current Condition Start: 12/06/20 10:41 Freq: Status: Active Protocol: Document 12/05/20 16:00 HH (Rec: 12/06/20 11:08 [email or web address]) Current Condition History of Current Condition Onset Date June this Current Complaints R lateral hip and thigh pain, difficulty to sleep History of Current Condition Renita is a 80yo female here for her R lateral hip and thigh pain since this June. No known injury. She stated her pain started one night while sleeping which her pain located below her greater trochanter and radiates down to lateral knee. Pt is a side sleeper and she realize sleeping on her back tends to relieve her symptoms. Walking for long distance and sitting for a long period of time tends to aggrave her pain as well. She has been taking ibuprofen and stretching her hips for pain management. Treatment Goals Patient/Caregiver Goals 1. to be able to sleep on her R side again PT-OP-C Subjective Start: 12/06/20 10:41 Freq: Status: Active Protocol: Document 12/11/20 13:44 HH (Rec: 12/11/20 14:28 [id number]) OP-PT Subjective Patient Comments Patient Comments The figure 4 stretch has been helpful and i have less pain to the knee.I also have Less pain at night but i ve been having some discomfort at my hip while walking. Patient Reported Progress Improving PT-OP-D Balance Start: 12/06/20 10:41 Freq: Status: Active Protocol: Document 12/05/20 16:00 HH (Rec: 12/06/20 11:08 [email or web address]) Balance Tests Single Limb Standing Single Limb- Right 20,50 (tredelenburg sign) Single Limb- Left 16,60 PT-OP-G Mobility & Gait Start: 12/06/20 10:41 Freq: Status: Active Protocol: Document 12/05/20 16:00 HH (Rec: 12/06/20 11:08 [email or web address]) OP Gait Assessment Comments Gait Comments dec stance phase on RLE, mild tredelenburg sign noted. PT-OP-H Neuro Start: 12/06/20 10:41 Freq: Status: Active Protocol: Document 12/05/20 16:00 HH (Rec: 12/06/20 11:08 [email or web address]) Sensation Evaluation Comments Summary Comments mild decreased sensation to LT and pinpick from lateral thigh to lateral gastro Deep Tendon Reflex & Clonus Assessment Deep Tendon Reflex Bilateral Achilles Deep Tendon Reflex 2+ Normal Bilateral Patellar Deep Tendon Reflex 2+ Normal PT-OP-K Range of Motion Start: 12/06/20 10:41 Freq: Status: Active Protocol: Document 12/05/20 16:00 HH (Rec: 12/06/20 11:08 [email or web address]) Hip Goniometric Range of Motion Hip Right Active Straight Leg Raise 63 Internal Rotation 45 External Rotation 36 Comments pt felt significant pulling sensation with figure 4 position Left Active Straight Leg Raise 70 Internal Rotation 40 External Rotation 45 Knee Goniometric Range of Motion Knee Right Knee ROM WFL Yes Comments WFL Left Knee ROM WFL Yes Comments WFL PT-OP-L Special Tests Start: 12/06/20 10:41 Freq: Status: Active Protocol: Document 12/05/20 16:00 HH (Rec: 12/06/20 11:08 [email or web address]) Special Tests Lumbar Spine Special Tests Slump Test Results -ve Hip Special Tests ELVIA Test Results -ve B Trendelenberg Test Results +VE R Comments during SL stance FADDIR Test Results -ve B COOPER Test Results +VE R Comments pain and stretching at R buttock Scour Test Test Results -ve B Straight Leg Raise Test Results -ve B PT-OP-Q Treatments Start: 12/06/20 10:41 Freq: Status: Active Protocol: Document 12/11/20 13:44 HH (Rec: 12/11/20 14:28 HH [id number]) Therapeutic Exercises Supine Exercises tennis ball release Supine Exercise Name at piriformis Side right bridging Reps/Minutes 10 x2 Comments for HEP with PPT figure 4 stretch Side right Reps/Minutes 15 sec hold x 5 Comments less discomfort after manual therapy. Sidelying Exercises clamshell Reps/Minutes 8 x2 Comments for HEP open book Reps/Minutes 10 sec hold x 3 Comments for HEP Sitting Exercises rolling pin Sitting Exercise Name at lateral quad, Manual Therapy Treatment Soft Tissue Mobilization quad Body Location lateral quad Mobilization Type Myofascial Release,Sustained Pressure,Trigger Point Release Intensity/Depth Moderate Body Position Hooklying R hip Body Location glute med, TFL Mobilization Type Myofascial Release,Sustained Pressure,Trigger Point Release Intensity/Depth Moderate Body Position Sidelying Comments significant tonicty at piriformis PT-OP-T Assessment and Plan Start: 12/06/20 10:41 Freq: Status: Active Protocol: Document 12/11/20 13:44 (Rec: 12/11/20 14:28 [id number]) Physical Therapy Assessment Goals gait Impairment +ve trendelenburg sign Short Term Goal (STG) pt will show improved R hip ER and hip stability to reduce her trendelenburg sign during stance phase STG Duration 4 weeks [facility]ci Goal (LTG) pt will show improved R hip ER and hip stability to reduce her knee valgus moment during squatting activities. LTG Duration 8 weeks activity tolerance Impairment unable to sit or walk >1 hour Short Term Goal (STG) pt will be able to sit/ walk > 1 hour without increase in discomfort STG Duration 4 weeks [facility]ci Goal (LTG) pt will be able to sit/ walk > 2 hour without increase in discomfort LTG Duration 8 weeks sleep Impairment significant pain sleeping on her R side Short Term Goal (STG) pt will show improved pain by being able to sleep on her R side without waking up >3 days a week STG Duration 4 weeks [facility] Goal (LTG) pt will show improved pain by being able to sleep on her R side without waking up for the entire week LTG Duration 8 weeks Assessment Summary Assessment pt reports improved knee pain and night pain. Added glute strengthening and glute release for new HEP. Pt eulalio session well. Physical Therapy Plan Frequency and Duration Frequency of Treatment 1-2x/wk Duration of Treatment 8 weeks Plan of Care Start Date 12/06/20 Plan of Care End Date 02/04/21 Therapeutic Interventions Therapeutic Interventions Aquatic Therapy,Balance Training,Gait Training,Home Exercise Program,Joint Mobilizations,Manual Therapy, Neuromuscular Re-education, Patient/Caregiver Education, Self-Care/Home Management,Soft Tissue Mobilization,Taping, Therapeutic Activities, Therapeutic Exercises Modalities Cold Pack/Ice Massage,Electric Stimulation,Hot Packs, Infrared Therapy,Traction- Mechanical,Ultrasound Next Visit Focus/Plan Next Note Type Treatment Note Next Visit Plan review figure4 stretch clamshell lateral quad release bridging open book stretch
--- NOTE | 2020-12-16 14:33 | PT.OTN ---
Current Diagnoses Lesion of sciatic nerve, right lower limb (12/16/20) Radiculopathy, lumbar region (12/16/20) Physical Therapy Treatment Note PT-OP-A Visit Information Start: 12/06/20 10:41 Freq: Status: Active Protocol: Document 12/16/20 13:51 HH (Rec: 12/16/20 14:32 [id number]) Out-Patient Physical Therapy Visit Information Visit Information Visit Type Treatment Note Visit Start Time 13:47 Visit Stop Time 14:30 Total Visit Minutes 43 Visit Number 3/ Number of COLOR STRIPPER Visits 0 PT-OP-B Current Condition Start: 12/06/20 10:41 Freq: Status: Active Protocol: Document 12/05/20 16:00 HH (Rec: 12/06/20 11:08 [email or web address]) Current Condition History of Current Condition Onset Date June this Current Complaints R lateral hip and thigh pain, difficulty to sleep History of Current Condition Renita is a 80yo female here for her R lateral hip and thigh pain since this June. No known injury. She stated her pain started one night while sleeping which her pain located below her greater trochanter and radiates down to lateral knee. Pt is a side sleeper and she realize sleeping on her back tends to relieve her symptoms. Walking for long distance and sitting for a long period of time tends to aggrave her pain as well. She has been taking ibuprofen and stretching her hips for pain management. Treatment Goals Patient/Caregiver Goals 1. to be able to sleep on her R side again PT-OP-C Subjective Start: 12/06/20 10:41 Freq: Status: Active Protocol: Document 12/16/20 13:51 HH (Rec: 12/16/20 14:32 [id number]) OP-PT Subjective Patient Comments Patient Comments Jaqueline been stretching a lot but the figure 4 and open book one bother my hip everytime. I try to hold it as long as possible PT-OP-D Balance Start: 12/06/20 10:41 Freq: Status: Active Protocol: Document 12/05/20 16:00 HH (Rec: 12/06/20 11:08 [email or web address]) Balance Tests Single Limb Standing Single Limb- Right 20,50 (tredelenburg sign) Single Limb- Left 16,60 PT-OP-G Mobility & Gait Start: 12/06/20 10:41 Freq: Status: Active Protocol: Document 12/05/20 16:00 HH (Rec: 12/06/20 11:08 [email or web address]) OP Gait Assessment Comments Gait Comments dec stance phase on RLE, mild tredelenburg sign noted. PT-OP-H Neuro Start: 12/06/20 10:41 Freq: Status: Active Protocol: Document 12/05/20 16:00 HH (Rec: 12/06/20 11:08 [email or web address]) Sensation Evaluation Comments Summary Comments mild decreased sensation to LT and pinpick from lateral thigh to lateral gastro Deep Tendon Reflex & Clonus Assessment Deep Tendon Reflex Bilateral Achilles Deep Tendon Reflex 2+ Normal Bilateral Patellar Deep Tendon Reflex 2+ Normal PT-OP-K Range of Motion Start: 12/06/20 10:41 Freq: Status: Active Protocol: Document 12/05/20 16:00 HH (Rec: 12/06/20 11:08 [email or web address]) Hip Goniometric Range of Motion Hip Right Active Straight Leg Raise 63 Internal Rotation 45 External Rotation 36 Comments pt felt significant pulling sensation with figure 4 position Left Active Straight Leg Raise 70 Internal Rotation 40 External Rotation 45 Knee Goniometric Range of Motion Knee Right Knee ROM WFL Yes Comments WFL Left Knee ROM WFL Yes Comments WFL PT-OP-L Special Tests Start: 12/06/20 10:41 Freq: Status: Active Protocol: Document 12/05/20 16:00 HH (Rec: 12/06/20 11:08 [email or web address]) Special Tests Lumbar Spine Special Tests Slump Test Results -ve Hip Special Tests ELVIA Test Results -ve B Trendelenberg Test Results +VE R Comments during SL stance FADDIR Test Results -ve B COOPER Test Results +VE R Comments pain and stretching at R buttock Scour Test Test Results -ve B Straight Leg Raise Test Results -ve B PT-OP-Q Treatments Start: 12/06/20 10:41 Freq: Status: Active Protocol: Document 12/16/20 13:51 HH (Rec: 12/16/20 14:32 HH [id number]) Cardio Equipment Bicycle (Upright) Duration (Minutes) 6 Resistance 7 Therapeutic Exercises Supine Exercises tennis ball release Supine Exercise Name at piriformis Side right bridging Reps/Minutes 10 x2 Comments for HEP with PPT figure 4 stretch Side right Reps/Minutes 15 sec hold x 5 Comments educated pt not to hold for minutes. Sidelying Exercises clamshell Reps/Minutes 8 x2 Comments cues on neutral spine open book Reps/Minutes 10 sec hold x 3 Comments educated pt not to hold for minutes. Standing Exercises donkey kick Side bilateral Reps/Minutes 10 x2 Comments cues on neutral spine, no discomfort Manual Therapy Treatment Soft Tissue Mobilization quad Body Location lateral quad Mobilization Type Myofascial Release,Sustained Pressure,Trigger Point Release Intensity/Depth Moderate Body Position Hooklying R hip Body Location glute med, TFL Mobilization Type Myofascial Release,Sustained Pressure,Trigger Point Release Intensity/Depth Moderate Body Position Sidelying Comments significant tonicty at piriformis, posterior to greater trochanter PT-OP-T Assessment and Plan Start: 12/06/20 10:41 Freq: Status: Active Protocol: Document 12/16/20 13:51 HH (Rec: 12/16/20 14:32 HH [id number]) Physical Therapy Assessment Goals gait Impairment +ve trendelenburg sign Short Term Goal (STG) pt will show improved R hip ER and hip stability to reduce her trendelenburg sign during stance phase STG Duration 4 weeks [facility] Goal (LTG) pt will show improved R hip ER and hip stability to reduce her knee valgus moment during squatting activities. LTG Duration 8 weeks activity tolerance Impairment unable to sit or walk >1 hour Short Term Goal (STG) pt will be able to sit/ walk > 1 hour without increase in discomfort STG Duration 4 weeks [employer] Goal (LTG) pt will be able to sit/ walk > 2 hour without increase in discomfort LTG Duration 8 weeks sleep Impairment significant pain sleeping on her R side Short Term Goal (STG) pt will show improved pain by being able to sleep on her R side without waking up >3 days a week STG Duration 4 weeks [employer] Goal (LTG) pt will show improved pain by being able to sleep on her R side without waking up for the entire week LTG Duration 8 weeks Assessment Summary Assessment Pt seems to get irritated after stretching for prolonged period of time and many times a day. Educated pt to keep her stretching 10-15 seconds max and no more than 2 times a day. Also focused more on hip stability ex and she has no c /o of discomfort Physical Therapy Plan Frequency and Duration Frequency of Treatment 1-2x/wk Duration of Treatment 8 weeks Plan of Care Start Date 12/06/20 Plan of Care End Date 02/04/21 Therapeutic Interventions Therapeutic Interventions Aquatic Therapy,Balance Training,Gait Training,Home Exercise Program,Joint Mobilizations,Manual Therapy, Neuromuscular Re-education, Patient/Caregiver Education, Self-Care/Home Management,Soft Tissue Mobilization,Taping, Therapeutic Activities, Therapeutic Exercises Modalities Cold Pack/Ice Massage,Electric Stimulation,Hot Packs, Infrared Therapy,Traction- Mechanical,Ultrasound Next Visit Focus/Plan Next Note Type Treatment Note Next Visit Plan review figure4 stretch clamshell lateral quad release bridging open book stretch
--- NOTE | 2020-12-20 13:47 | PT.OTN ---
Current Diagnoses Lesion of sciatic nerve, right lower limb (12/20/20) Radiculopathy, lumbar region (12/20/20) Physical Therapy Treatment Note PT-OP-A Visit Information Start: 12/06/20 10:41 Freq: Status: Active Protocol: Document 12/20/20 13:03 HH (Rec: 12/20/20 13:47 [id number]) Out-Patient Physical Therapy Visit Information Visit Information Visit Type Treatment Note Visit Start Time 13:03 Visit Stop Time 13:45 Total Visit Minutes 42 Visit Number 10/07 Number of PROPERTY DISPOSAL OFFICER Visits 0 PT-OP-B Current Condition Start: 12/06/20 10:41 Freq: Status: Active Protocol: Document 12/05/20 16:00 HH (Rec: 12/06/20 11:08 [email or web address]) Current Condition History of Current Condition Onset Date June this Current Complaints R lateral hip and thigh pain, difficulty to sleep History of Current Condition Renita is a 80yo female here for her R lateral hip and thigh pain since this June. No known injury. She stated her pain started one night while sleeping which her pain located below her greater trochanter and radiates down to lateral knee. Pt is a side sleeper and she realize sleeping on her back tends to relieve her symptoms. Walking for long distance and sitting for a long period of time tends to aggrave her pain as well. She has been taking ibuprofen and stretching her hips for pain management. Treatment Goals Patient/Caregiver Goals 1. to be able to sleep on her R side again PT-OP-C Subjective Start: 12/06/20 10:41 Freq: Status: Active Protocol: Document 12/20/20 13:03 HH (Rec: 12/20/20 13:47 [id number]) OP-PT Subjective Patient Comments Patient Comments I cut back on my HEP on wednesday and and suddenly i feel a lot better. Jaqueline been doing my exercises 3 times a day. Patient Reported Progress Improving PT-OP-D Balance Start: 12/06/20 10:41 Freq: Status: Active Protocol: Document 12/05/20 16:00 HH (Rec: 12/06/20 11:08 [email or web address]) Balance Tests Single Limb Standing Single Limb- Right 20,50 (tredelenburg sign) Single Limb- Left 16,60 PT-OP-G Mobility & Gait Start: 12/06/20 10:41 Freq: Status: Active Protocol: Document 12/05/20 16:00 HH (Rec: 12/06/20 11:08 [email or web address]) OP Gait Assessment Comments Gait Comments dec stance phase on RLE, mild tredelenburg sign noted. PT-OP-H Neuro Start: 12/06/20 10:41 Freq: Status: Active Protocol: Document 12/05/20 16:00 HH (Rec: 12/06/20 11:08 [email or web address]) Sensation Evaluation Comments Summary Comments mild decreased sensation to LT and pinpick from lateral thigh to lateral gastro Deep Tendon Reflex & Clonus Assessment Deep Tendon Reflex Bilateral Achilles Deep Tendon Reflex 2+ Normal Bilateral Patellar Deep Tendon Reflex 2+ Normal PT-OP-K Range of Motion Start: 12/06/20 10:41 Freq: Status: Active Protocol: Document 12/05/20 16:00 HH (Rec: 12/06/20 11:08 [email or web address]) Hip Goniometric Range of Motion Hip Right Active Straight Leg Raise 63 Internal Rotation 45 External Rotation 36 Comments pt felt significant pulling sensation with figure 4 position Left Active Straight Leg Raise 70 Internal Rotation 40 External Rotation 45 Knee Goniometric Range of Motion Knee Right Knee ROM WFL Yes Comments WFL Left Knee ROM WFL Yes Comments WFL PT-OP-L Special Tests Start: 12/06/20 10:41 Freq: Status: Active Protocol: Document 12/05/20 16:00 HH (Rec: 12/06/20 11:08 [email or web address]) Special Tests Lumbar Spine Special Tests Slump Test Results -ve Hip Special Tests ELVIA Test Results -ve B Trendelenberg Test Results +VE R Comments during SL stance FADDIR Test Results -ve B COOPER Test Results +VE R Comments pain and stretching at R buttock Scour Test Test Results -ve B Straight Leg Raise Test Results -ve B PT-OP-Q Treatments Start: 12/06/20 10:41 Freq: Status: Active Protocol: Document 12/20/20 13:03 HH (Rec: 12/20/20 13:47 HH [id number]) Cardio Equipment Bicycle (Upright) Duration (Minutes) 6 Resistance 7 Gym Equipment Shuttle Recovery SL squat Resistance #37 Shuttle Recovery Platform Stable Reps/Time R knee valgus noted but corrected after cues Therapeutic Exercises Supine Exercises bridging Equipment Used red therapy band on knees. Reps/Minutes 10 x2, 5 sec hold at top Comments for HEP with PPT figure 4 stretch Side right Reps/Minutes 15 sec hold x 5 Comments educated pt not to hold for minutes. Sidelying Exercises clamshell Reps/Minutes 8 x2 Comments cues on neutral spine Standing Exercises donkey kick Side bilateral Reps/Minutes 10 x2 Comments cues on neutral spine, no discomfort Manual Therapy Treatment Soft Tissue Mobilization quad Body Location lateral quad Mobilization Type Myofascial Release,Sustained Pressure,Trigger Point Release Intensity/Depth Moderate Body Position Hooklying R hip Body Location glute med, TFL Mobilization Type Myofascial Release,Sustained Pressure,Trigger Point Release Intensity/Depth Moderate Body Position Sidelying Comments reduced tonicty at piriformis, posterior to greater trochanter PT-OP-T Assessment and Plan Start: 12/06/20 10:41 Freq: Status: Active Protocol: Document 12/20/20 13:03 (Rec: 12/20/20 13:47 [id number]) Physical Therapy Assessment Goals gait Impairment +ve trendelenburg sign Short Term Goal (STG) pt will show improved R hip ER and hip stability to reduce her trendelenburg sign during stance phase STG Duration 4 weeks [facility] Goal (LTG) pt will show improved R hip ER and hip stability to reduce her knee valgus moment during squatting activities. LTG Duration 8 weeks activity tolerance Impairment unable to sit or walk >1 hour Short Term Goal (STG) pt will be able to sit/ walk > 1 hour without increase in discomfort STG Duration 4 weeks Slot Machine Repairer Goal (LTG) pt will be able to sit/ walk > 2 hour without increase in discomfort LTG Duration 8 weeks sleep Impairment significant pain sleeping on her R side Short Term Goal (STG) pt will show improved pain by being able to sleep on her R side without waking up >3 days a week STG Duration 4 weeks [facility] Goal (LTG) pt will show improved pain by being able to sleep on her R side without waking up for the entire week LTG Duration 8 weeks Assessment Summary Assessment Pt reports improved symptoms for the past two days by managing her activity level and HEP. Spent time educating pt on the importance of rest, HEP once a day only. Also noticed pt had R knee valgus moment during leg press but improved after cueing. Physical Therapy Plan Frequency and Duration Frequency of Treatment 1-2x/wk Duration of Treatment 8 weeks Plan of Care Start Date 12/06/20 Plan of Care End Date 02/04/21 Therapeutic Interventions Therapeutic Interventions Aquatic Therapy,Balance Training,Gait Training,Home Exercise Program,Joint Mobilizations,Manual Therapy, Neuromuscular Re-education, Patient/Caregiver Education, Self-Care/Home Management,Soft Tissue Mobilization,Taping, Therapeutic Activities, Therapeutic Exercises Modalities Cold Pack/Ice Massage,Electric Stimulation,Hot Packs, Infrared Therapy,Traction- Mechanical,Ultrasound Next Visit Focus/Plan Next Note Type Treatment Note Next Visit Plan review figure4 stretch clamshell lateral quad release bridging open book stretch
--- NOTE | 2020-12-25 10:17 | PT.OTN ---
Current Diagnoses Lesion of sciatic nerve, right lower limb (12/25/20) Radiculopathy, lumbar region (12/25/20) Physical Therapy Treatment Note PT-OP-A Visit Information Start: 12/06/20 10:41 Freq: Status: Active Protocol: Document 12/25/20 08:25 HH (Rec: 12/25/20 10:17 [id number]) Out-Patient Physical Therapy Visit Information Visit Information Visit Type Treatment Note Visit Start Time 09:02 Visit Stop Time 09:45 Total Visit Minutes 43 Visit Number 11/06 Number of KITCHEN MECHANIC Visits 0 PT-OP-B Current Condition Start: 12/06/20 10:41 Freq: Status: Active Protocol: Document 12/05/20 16:00 HH (Rec: 12/06/20 11:08 [email or web address]) Current Condition History of Current Condition Onset Date June Current Complaints R lateral hip and thigh pain, difficulty to sleep History of Current Condition Renita is a 80yo female here for her R lateral hip and thigh pain since this June. No known injury. She stated her pain started one night while sleeping which her pain located below her greater trochanter and radiates down to lateral knee. Pt is a side sleeper and she realize sleeping on her back tends to relieve her symptoms. Walking for long distance and sitting for a long period of time tends to aggrave her pain as well. She has been taking ibuprofen and stretching her hips for pain management. Treatment Goals Patient/Caregiver Goals 1. to be able to sleep on her R side again PT-OP-C Subjective Start: 12/06/20 10:41 Freq: Status: Active Protocol: Document 12/25/20 08:25 HH (Rec: 12/25/20 10:17 [id number]) OP-PT Subjective Patient Comments Patient Comments My whole leg is fine. I do feel the pressure at the hip when i take a step. I felt the best on wednesday. And i dont have the knee pain anymore Patient Reported Progress Improving PT-OP-D Balance Start: 12/06/20 10:41 Freq: Status: Active Protocol: Document 12/05/20 16:00 HH (Rec: 12/06/20 11:08 [email or web address]) Balance Tests Single Limb Standing Single Limb- Right 20,50 (tredelenburg sign) Single Limb- Left 16,60 PT-OP-G Mobility & Gait Start: 12/06/20 10:41 Freq: Status: Active Protocol: Document 12/05/20 16:00 HH (Rec: 12/06/20 11:08 HH [email or web address]) OP Gait Assessment Comments Gait Comments dec stance phase on RLE, mild tredelenburg sign noted. PT-OP-H Neuro Start: 12/06/20 10:41 Freq: Status: Active Protocol: Document 12/05/20 16:00 HH (Rec: 12/06/20 11:08 HH [email or web address]) Sensation Evaluation Comments Summary Comments mild decreased sensation to LT and pinpick from lateral thigh to lateral gastro Deep Tendon Reflex & Clonus Assessment Deep Tendon Reflex Bilateral Achilles Deep Tendon Reflex 2+ Normal Bilateral Patellar Deep Tendon Reflex 2+ Normal PT-OP-K Range of Motion Start: 12/06/20 10:41 Freq: Status: Active Protocol: Document 12/05/20 16:00 HH (Rec: 12/06/20 11:08 [email or web address]) Hip Goniometric Range of Motion Hip Right Active Straight Leg Raise 63 Internal Rotation 45 External Rotation 36 Comments pt felt significant pulling sensation with figure 4 position Left Active Straight Leg Raise 70 Internal Rotation 40 External Rotation 45 Knee Goniometric Range of Motion Knee Right Knee ROM WFL Yes Comments WFL Left Knee ROM WFL Yes Comments WFL PT-OP-L Special Tests Start: 12/06/20 10:41 Freq: Status: Active Protocol: Document 12/05/20 16:00 HH (Rec: 12/06/20 11:08 [email or web address]) Special Tests Lumbar Spine Special Tests Slump Test Results -ve Hip Special Tests ELVIA Test Results -ve B Trendelenberg Test Results +VE R Comments during SL stance FADDIR Test Results -ve B COOPER Test Results +VE R Comments pain and stretching at R buttock Scour Test Test Results -ve B Straight Leg Raise Test Results -ve B PT-OP-Q Treatments Start: 12/06/20 10:41 Freq: Status: Active Protocol: Document 12/25/20 08:25 HH (Rec: 12/25/20 10:17 HH [id number]) Cardio Equipment Bicycle (Upright) Duration (Minutes) 6 Resistance 7 Other R knee valgus noted Gym Equipment Shuttle Recovery SL squat Resistance #37 Shuttle Recovery Platform Stable Reps/Time cues with neutral knee alignment Therapeutic Exercises Supine Exercises hip adductors Supine Exercise Name rolling pin for myofascial release then stretch Side right Reps/Minutes 10 x2 Comments for HEP bridging Equipment Used red therapy band on knees. Reps/Minutes 10 x2, 5 sec hold at top Comments for HEP with PPT figure 4 stretch Side right Reps/Minutes 15 sec hold x 5 Comments educated pt not to hold for minutes. Standing Exercises donkey kick Side bilateral Reps/Minutes 10 x2 Comments cues on neutral spine, no discomfort Manual Therapy Treatment Soft Tissue Mobilization quad Body Location lateral quad Mobilization Type Myofascial Release,Sustained Pressure,Trigger Point Release Intensity/Depth Moderate Body Position Hooklying R hip Body Location glute med, TFL Mobilization Type Myofascial Release,Sustained Pressure,Trigger Point Release Intensity/Depth Moderate Body Position Sidelying Comments reduced tonicty at piriformis, posterior to greater trochanter. No discomfort at distal lateral knee. PT-OP-T Assessment and Plan Start: 12/06/20 10:41 Freq: Status: Active Protocol: Document 12/25/20 08:25 (Rec: 12/25/20 10:17 [id number]) Physical Therapy Assessment Goals gait Impairment +ve trendelenburg sign Short Term Goal (STG) pt will show improved R hip ER and hip stability to reduce her trendelenburg sign during stance phase STG Duration 4 weeks [facility] Goal (LTG) pt will show improved R hip ER and hip stability to reduce her knee valgus moment during squatting activities. LTG Duration 8 weeks activity tolerance Impairment unable to sit or walk >1 hour Short Term Goal (STG) pt will be able to sit/ walk > 1 hour without increase in discomfort STG Duration 4 weeks [employer] Goal (LTG) pt will be able to sit/ walk > 2 hour without increase in discomfort LTG Duration 8 weeks sleep Impairment significant pain sleeping on her R side Short Term Goal (STG) pt will show improved pain by being able to sleep on her R side without waking up >3 days a week STG Duration 4 weeks [employer] Goal (LTG) pt will show improved pain by being able to sleep on her R side without waking up for the entire week LTG Duration 8 weeks Assessment Summary Assessment pt shows progress with improved sleep quality and no more pain at lateral knee region. Spent time cueing pt on her hip and knee alignment with WB activities since she tends to show knee valgus moment. Pt eulalio session very well. Added hip adductor stretch and bridging with band Physical Therapy Plan Frequency and Duration Frequency of Treatment 1-2x/wk Duration of Treatment 8 weeks Plan of Care Start Date 12/06/20 Plan of Care End Date 02/04/21 Therapeutic Interventions Therapeutic Interventions Aquatic Therapy,Balance Training,Gait Training,Home Exercise Program,Joint Mobilizations,Manual Therapy, Neuromuscular Re-education, Patient/Caregiver Education, Self-Care/Home Management,Soft Tissue Mobilization,Taping, Therapeutic Activities, Therapeutic Exercises Modalities Cold Pack/Ice Massage,Electric Stimulation,Hot Packs, Infrared Therapy,Traction- Mechanical,Ultrasound Next Visit Focus/Plan Next Note Type Treatment Note Next Visit Plan review figure4 stretch clamshell lateral quad release bridging open book stretch
--- NOTE | 2021-01-09 10:33 | PT.OTN ---
Current Diagnoses Lesion of sciatic nerve, right lower limb (01/09/21) Radiculopathy, lumbar region (01/09/21) Physical Therapy Treatment Note PT-OP-A Visit Information Start: 12/06/20 10:41 Freq: Status: Active Protocol: Document 01/09/21 09:48 HH (Rec: 01/09/21 10:33 [id number]) Out-Patient Physical Therapy Visit Information Visit Information Visit Type Treatment Note Visit Start Time 09:48 Visit Stop Time 10:30 Total Visit Minutes 42 Visit Number 12/07 Number of CHAIRMAN Visits 0 PT-OP-B Current Condition Start: 12/06/20 10:41 Freq: Status: Active Protocol: Document 12/05/20 16:00 HH (Rec: 12/06/20 11:08 [email or web address]) Current Condition History of Current Condition Onset Date June this Current Complaints R lateral hip and thigh pain, difficulty to sleep History of Current Condition Renita is a 80yo female here for her R lateral hip and thigh pain since this June. No known injury. She stated her pain started one night while sleeping which her pain located below her greater trochanter and radiates down to lateral knee. Pt is a side sleeper and she realize sleeping on her back tends to relieve her symptoms. Walking for long distance and sitting for a long period of time tends to aggrave her pain as well. She has been taking ibuprofen and stretching her hips for pain management. Treatment Goals Patient/Caregiver Goals 1. to be able to sleep on her R side again PT-OP-C Subjective Start: 12/06/20 10:41 Freq: Status: Active Protocol: Document 01/09/21 09:48 HH (Rec: 01/09/21 10:33 [id number]) OP-PT Subjective Patient Comments Patient Comments Im walking with a straighter foot without thinking about it . I can sleep better now and i dont have any pain to the knee. But i still feel it on my side of the hip. Patient Reported Progress Improving PT-OP-D Balance Start: 12/06/20 10:41 Freq: Status: Active Protocol: Document 12/05/20 16:00 HH (Rec: 12/06/20 11:08 [email or web address]) Balance Tests Single Limb Standing Single Limb- Right 20,50 (tredelenburg sign) Single Limb- Left 16,60 PT-OP-G Mobility & Gait Start: 12/06/20 10:41 Freq: Status: Active Protocol: Document 12/05/20 16:00 HH (Rec: 12/06/20 11:08 [email or web address]) OP Gait Assessment Comments Gait Comments dec stance phase on RLE, mild tredelenburg sign noted. PT-OP-H Neuro Start: 12/06/20 10:41 Freq: Status: Active Protocol: Document 12/05/20 16:00 HH (Rec: 12/06/20 11:08 [email or web address]) Sensation Evaluation Comments Summary Comments mild decreased sensation to LT and pinpick from lateral thigh to lateral gastro Deep Tendon Reflex & Clonus Assessment Deep Tendon Reflex Bilateral Achilles Deep Tendon Reflex 2+ Normal Bilateral Patellar Deep Tendon Reflex 2+ Normal PT-OP-K Range of Motion Start: 12/06/20 10:41 Freq: Status: Active Protocol: Document 12/05/20 16:00 HH (Rec: 12/06/20 11:08 [email or web address]) Hip Goniometric Range of Motion Hip Right Active Straight Leg Raise 63 Internal Rotation 45 External Rotation 36 Comments pt felt significant pulling sensation with figure 4 position Left Active Straight Leg Raise 70 Internal Rotation 40 External Rotation 45 Knee Goniometric Range of Motion Knee Right Knee ROM WFL Yes Comments WFL Left Knee ROM WFL Yes Comments WFL PT-OP-L Special Tests Start: 12/06/20 10:41 Freq: Status: Active Protocol: Document 12/05/20 16:00 HH (Rec: 12/06/20 11:08 [email or web address]) Special Tests Lumbar Spine Special Tests Slump Test Results -ve Hip Special Tests ELVIA Test Results -ve B Trendelenberg Test Results +VE R Comments during SL stance FADDIR Test Results -ve B COOPER Test Results +VE R Comments pain and stretching at R buttock Scour Test Test Results -ve B Straight Leg Raise Test Results -ve B PT-OP-Q Treatments Start: 12/06/20 10:41 Freq: Status: Active Protocol: Document 01/09/21 09:48 HH (Rec: 01/09/21 10:33 HH [id number]) Cardio Equipment Bicycle (Upright) Duration (Minutes) 6 Resistance 7 Other R knee valgus noted Therapeutic Exercises Supine Exercises bridging Equipment Used red therapy band on knees. Reps/Minutes 10 x2, 5 sec hold at top Comments for HEP with PPT Standing Exercises monster walk Equipment Used red band at knees Reps/Minutes 10 ft x 5 Comments for HEP, RLE lack of stability Manual Therapy Treatment Soft Tissue Mobilization quad Body Location lateral quad Mobilization Type Myofascial Release,Sustained Pressure,Trigger Point Release Intensity/Depth Moderate Body Position Hooklying R hip Body Location glute med, TFL Mobilization Type Myofascial Release,Sustained Pressure,Trigger Point Release Intensity/Depth Moderate Body Position Sidelying Comments reduced tonicty at piriformis, posterior to greater trochanter. No discomfort at distal lateral knee. Self-Care/Home Management Treatment Education Patient Education Body Mechanics,Home Exercise Program,Joint Protection,Pain Management,Posture Other Education educated pt to place a pillow between her knees and rotate her hip slowly after laying on her L side for pain mangement . PT-OP-T Assessment and Plan Start: 12/06/20 10:41 Freq: Status: Active Protocol: Document 01/09/21 09:48 HH (Rec: 01/09/21 10:33 HH [id number]) Physical Therapy Assessment Goals gait Impairment +ve trendelenburg sign Short Term Goal (STG) pt will show improved R hip ER and hip stability to reduce her trendelenburg sign during stance phase STG Duration 4 weeks Penitentiary Goal (LTG) pt will show improved R hip ER and hip stability to reduce her knee valgus moment during squatting activities. LTG Duration 8 weeks activity tolerance Impairment unable to sit or walk >1 hour Short Term Goal (STG) pt will be able to sit/ walk > 1 hour without increase in discomfort STG Duration 4 weeks Penitentiary Goal (LTG) pt will be able to sit/ walk > 2 hour without increase in discomfort LTG Duration 8 weeks sleep Impairment significant pain sleeping on her R side Short Term Goal (STG) pt will show improved pain by being able to sleep on her R side without waking up >3 days a week STG Duration 4 weeks Boat Builder Goal (LTG) pt will show improved pain by being able to sleep on her R side without waking up for the entire week LTG Duration 8 weeks Assessment Summary Assessment pt continues to show progress with improved sleep quality and no pain at lateral knee. She amb with improved hip and knee alignment. Educated pt to place pillow between knees and rotate her hip slowly after sleeping on her L side. Added hip ER strengthening and monster walk today and she eulalio session very well. Physical Therapy Plan Frequency and Duration Frequency of Treatment 1-2x/wk Duration of Treatment 8 weeks Plan of Care Start Date 12/06/20 Plan of Care End Date 02/04/21 Therapeutic Interventions Therapeutic Interventions Aquatic Therapy,Balance Training,Gait Training,Home Exercise Program,Joint Mobilizations,Manual Therapy, Neuromuscular Re-education, Patient/Caregiver Education, Self-Care/Home Management,Soft Tissue Mobilization,Taping, Therapeutic Activities, Therapeutic Exercises Modalities Cold Pack/Ice Massage,Electric Stimulation,Hot Packs, Infrared Therapy,Traction- Mechanical,Ultrasound Next Visit Focus/Plan Next Note Type Treatment Note Next Visit Plan review figure4 stretch clamshell lateral quad release bridging open book stretch
--- NOTE | 2021-01-13 11:17 | PT.OTN ---
Current Diagnoses Lesion of sciatic nerve, right lower limb (01/13/21) Radiculopathy, lumbar region (01/13/21) Physical Therapy Treatment Note PT-OP-A Visit Information Start: 12/06/20 10:41 Freq: Status: Active Protocol: Document 01/13/21 09:45 HH (Rec: 01/13/21 11:16 [id number]) Out-Patient Physical Therapy Visit Information Visit Information Visit Type Treatment Note Visit Start Time 10:30 Visit Stop Time 11:15 Total Visit Minutes 45 Visit Number 01/06 Number of GREEN MARKETING SPECIALIST Visits 0 PT-OP-B Current Condition Start: 12/06/20 10:41 Freq: Status: Active Protocol: Document 12/05/20 16:00 HH (Rec: 12/06/20 11:08 [email or web address]) Current Condition History of Current Condition Onset Date June this Current Complaints R lateral hip and thigh pain, difficulty to sleep History of Current Condition Renita is a 80yo female here for her R lateral hip and thigh pain since this June. No known injury. She stated her pain started one night while sleeping which her pain located below her greater trochanter and radiates down to lateral knee. Pt is a side sleeper and she realize sleeping on her back tends to relieve her symptoms. Walking for long distance and sitting for a long period of time tends to aggrave her pain as well. She has been taking ibuprofen and stretching her hips for pain management. Treatment Goals Patient/Caregiver Goals 1. to be able to sleep on her R side again PT-OP-C Subjective Start: 12/06/20 10:41 Freq: Status: Active Protocol: Document 01/13/21 09:45 HH (Rec: 01/13/21 11:16 [id number]) OP-PT Subjective Patient Comments Patient Comments Im not feeling too much during day time but more so at night time. Jaqueline been doing 10k steps a day and that seems to be okay. Patient Reported Progress Improving PT-OP-D Balance Start: 12/06/20 10:41 Freq: Status: Active Protocol: Document 12/05/20 16:00 HH (Rec: 12/06/20 11:08 [email or web address]) Balance Tests Single Limb Standing Single Limb- Right 20,50 (tredelenburg sign) Single Limb- Left 16,60 PT-OP-G Mobility & Gait Start: 12/06/20 10:41 Freq: Status: Active Protocol: Document 12/05/20 16:00 HH (Rec: 12/06/20 11:08 [email or web address]) OP Gait Assessment Comments Gait Comments dec stance phase on RLE, mild tredelenburg sign noted. PT-OP-H Neuro Start: 12/06/20 10:41 Freq: Status: Active Protocol: Document 12/05/20 16:00 HH (Rec: 12/06/20 11:08 [email or web address]) Sensation Evaluation Comments Summary Comments mild decreased sensation to LT and pinpick from lateral thigh to lateral gastro Deep Tendon Reflex & Clonus Assessment Deep Tendon Reflex Bilateral Achilles Deep Tendon Reflex 2+ Normal Bilateral Patellar Deep Tendon Reflex 2+ Normal PT-OP-K Range of Motion Start: 12/06/20 10:41 Freq: Status: Active Protocol: Document 12/05/20 16:00 HH (Rec: 12/06/20 11:08 [email or web address]) Hip Goniometric Range of Motion Hip Right Active Straight Leg Raise 63 Internal Rotation 45 External Rotation 36 Comments pt felt significant pulling sensation with figure 4 position Left Active Straight Leg Raise 70 Internal Rotation 40 External Rotation 45 Knee Goniometric Range of Motion Knee Right Knee ROM WFL Yes Comments WFL Left Knee ROM WFL Yes Comments WFL PT-OP-L Special Tests Start: 12/06/20 10:41 Freq: Status: Active Protocol: Document 12/05/20 16:00 HH (Rec: 12/06/20 11:08 [email or web address]) Special Tests Lumbar Spine Special Tests Slump Test Results -ve Hip Special Tests ELVIA Test Results -ve B Trendelenberg Test Results +VE R Comments during SL stance FADDIR Test Results -ve B COOPER Test Results +VE R Comments pain and stretching at R buttock Scour Test Test Results -ve B Straight Leg Raise Test Results -ve B PT-OP-Q Treatments Start: 12/06/20 10:41 Freq: Status: Active Protocol: Document 01/13/21 09:45 HH (Rec: 01/13/21 11:16 [id number]) Cardio Equipment Bicycle (Upright) Duration (Minutes) 6 Resistance 7 Other R knee valgus noted Gym Equipment Shuttle Recovery SL squat Resistance #37 Shuttle Recovery Platform Stable Reps/Time cues with neutral knee alignment Therapeutic Exercises Supine Exercises hip adductors Supine Exercise Name rolling pin for myofascial release then stretch Side right Reps/Minutes 10 x2 Comments for HEP bridging Equipment Used red therapy band on knees. Reps/Minutes 10 x2, 5 sec hold at top Comments for HEP with PPT figure 4 stretch Side right Reps/Minutes 15 sec hold x 5 Comments educated pt not to hold for minutes. Standing Exercises hip ER Side bilateral Equipment Used red band Reps/Minutes 10 x1 Comments for HEP monster walk Equipment Used red band at knees Reps/Minutes 10 ft x 5 Comments for HEP, RLE lack of stability donkey kick Side bilateral Reps/Minutes 10 x2 Comments cues on neutral spine, no discomfort Manual Therapy Treatment Soft Tissue Mobilization R hip Body Location glute med, TFL Mobilization Type Myofascial Release,Sustained Pressure,Trigger Point Release Intensity/Depth Moderate Body Position Sidelying Comments reduced tonicty at piriformis, posterior to greater trochanter. No discomfort at distal lateral knee. PT-OP-T Assessment and Plan Start: 12/06/20 10:41 Freq: Status: Active Protocol: Document 01/13/21 09:45 (Rec: 01/13/21 11:16 [id number]) Physical Therapy Assessment Goals gait Impairment +ve trendelenburg sign Short Term Goal (STG) pt will show improved R hip ER and hip stability to reduce her trendelenburg sign during stance phase STG Duration 4 weeks Elderly Companion Goal (LTG) pt will show improved R hip ER and hip stability to reduce her knee valgus moment during squatting activities. LTG Duration 8 weeks activity tolerance Impairment unable to sit or walk >1 hour Short Term Goal (STG) pt will be able to sit/ walk > 1 hour without increase in discomfort STG Duration 4 weeks Penitentiary Goal (LTG) pt will be able to sit/ walk > 2 hour without increase in discomfort LTG Duration 8 weeks sleep Impairment significant pain sleeping on her R side Short Term Goal (STG) pt will show improved pain by being able to sleep on her R side without waking up >3 days a week STG Duration 4 weeks Elderly Companion Goal (LTG) pt will show improved pain by being able to sleep on her R side without waking up for the entire week LTG Duration 8 weeks Assessment Summary Assessment pt reports she mostly has night pain only at this point. Consolidated her HEP to be more hip strengthening focused . I will f/u with her via phone in 3 weeks to assess whether she still needs therapy or not. Physical Therapy Plan Frequency and Duration Frequency of Treatment 1-2x/wk Duration of Treatment 8 weeks Plan of Care Start Date 12/06/20 Plan of Care End Date 02/04/21 Therapeutic Interventions Therapeutic Interventions Aquatic Therapy,Balance Training,Gait Training,Home Exercise Program,Joint Mobilizations,Manual Therapy, Neuromuscular Re-education, Patient/Caregiver Education, Self-Care/Home Management,Soft Tissue Mobilization,Taping, Therapeutic Activities, Therapeutic Exercises Modalities Cold Pack/Ice Massage,Electric Stimulation,Hot Packs, Infrared Therapy,Traction- Mechanical,Ultrasound Next Visit Focus/Plan Next Note Type Treatment Note Next Visit Plan review figure4 stretch clamshell lateral quad release bridging open book stretch
--- NOTE | 2021-03-12 14:00 | PT.OPDS ---
Current Diagnoses Lesion of sciatic nerve, right lower limb (03/12/21) Radiculopathy, lumbar region (03/12/21) Visit Care Team Role Provider Type Marisel Sweeney MD Attending Provider Physician Family Provider Primary Care Provider Referring Provider Specialty: [facility] Address: [address] [place] [address], [facility] [place], [address] Email: [email or web address] Visit Number Visit Number 01/06 Discharge Summary PT-OP-C Subjective Start: 12/06/20 10:41 Freq: Status: Active Protocol: Document 03/12/21 13:48 HH (Rec: 03/12/21 14:00 [id number]) OP-PT Subjective Patient Comments Patient Comments Im very well so far. I dont remember I have hip problems at all. I am able to sleep 6-7 hours a night as well. Patient Reported Progress Improving PT-OP-T Assessment and Plan Start: 12/06/20 10:41 Freq: Status: Active Protocol: Document 03/12/21 13:48 HH (Rec: 03/12/21 14:00 [id number]) Physical Therapy Assessment Goals gait Impairment +ve trendelenburg sign Short Term Goal (STG) pt will show improved R hip ER and hip stability to reduce her trendelenburg sign during stance phase STG Duration 4 weeks Supervisor Stone Goal (LTG) 03/12. Goal met no antalgic sign LTG Duration 8 weeks activity tolerance Impairment unable to sit or walk >1 hour Short Term Goal (STG) pt will be able to sit/ walk > 1 hour without increase in discomfort STG Duration 4 weeks Retirement Goal (LTG) 03/12 pt is be able to sit/ walk > 2 hour without increase in discomfort LTG Duration 8 weeks sleep Impairment significant pain sleeping on her R side Short Term Goal (STG) pt will show improved pain by being able to sleep on her R side without waking up >3 days a week STG Duration 4 weeks Retirement Goal (LTG) 03/12 goal met pt is able to sleep witout disomfort. LTG Duration 8 weeks Discharge Physical Therapy Discharge Reasons Goals Met
== END 2021-03-12 16:27 | disposition home or self-care (01) ==
LOC: PHYS 10:30
PROVIDERS: Family Provider Family Medicine; PCP Family Medicine; Referring Provider Family Medicine; Visit Provider Family Medicine
DX: M54.16 Radiculopathy, lumbar region (principal); G57.01 Lesion of sciatic nerve, right lower limb
CPT/HCPCS: 97110; 97140; 97161; 97535

== ENCOUNTER → 2021-03-19 11:09 | Outpatient (CLI) | payer MEDICARE, SELFPAY ==
[2021-03-19 13:23] LABS: Vitamin B12 857 pg/mL (239-931)
[2021-03-20 17:15] LABS: Tissue Transglutaminase IgA <2 U/mL (0-3)
== END ==
PROVIDERS: Family Provider Family Medicine; PCP Family Medicine; Referring Provider Internal Medicine Gastroenterology; Visit Provider Internal Medicine Gastroenterology
DX: R19.7 Diarrhea, unspecified (principal)
CPT/HCPCS: 36415; 82607; 83516

== ENCOUNTER → 2021-04-02 09:56 | Outpatient (CLI) | payer MEDICARE, SELFPAY ==
--- NOTE | 2021-04-02 09:59 | DI.RAD.S_ITS ---
PROCEDURE: XR HIP W PEL IF DONE RT 2V INDICATIONS: LUMBAR RADICULOPATHY TECHNIQUE: AP pelvis with lateral view(s) of the right hip(s). COMPARISON: [facility], , XR LUMBAR SPINE 2-3V, 04/02/2021, 9:54. FINDINGS: Bones: No fractures or dislocations. Pelvic ring appears intact. No suspicious bony lesions. Moderate bilateral hip joint space narrowing with small periarticular osteophytes. No erosions. Mild degenerative changes within the lower lumbar spine Soft tissues: The visualized bowel gas pattern is normal. No suspicious soft tissue calcifications. IMPRESSION: Arthritic changes within the hips bilaterally. Dictated by: Moriah Powell M.D. on 04/02/2021 at 12:23 Approved by: Moriah Powell M.D. on 04/02/2021 at 12:25
--- NOTE | 2021-04-02 09:59 | DI.RAD.S_ITS ---
PROCEDURE: XR LUMBAR SPINE 2-3V INDICATIONS: LUMBAR RADICULOPATHY TECHNIQUE: 2 views of the lumbar spine were acquired. COMPARISON: [facility], , L-SPINE 2-3 VIEWS, 05/09/2007, 8:48. FINDINGS: Bones: 5 [id number]-gnldsds vertebrae are present. There is trace anterolisthesis of L3 on L4, trace retrolisthesis of L4 on L5. Multilevel [id number]-[id number] degenerative disc space narrowing. The a moderate foraminal narrowing is present L5-S1. Non bridging anterior osteophytes are present. No vertebral body compression fractures. No suspicious bony lesions. Soft tissues: Overlying bowel gas pattern is normal. No suspicious soft tissue calcifications. IMPRESSION: Degenerative changes most notable at L5-S1. Dictated by: Moriah Powell M.D. on 04/02/2021 at 12:25 Approved by: Moriah Powell M.D. on 04/02/2021 at 12:26
== END ==
PROVIDERS: Family Provider Family Medicine; PCP Family Medicine; Referring Provider Family Medicine; Visit Provider Family Medicine
DX: M47.26 Other spondylosis with radiculopathy, lumbar region (principal)
CPT/HCPCS: 72100; 73502

== ENCOUNTER → 2021-11-28 14:57 | Outpatient (CLI) | payer MEDICARE, SELFPAY | PROVIDERS: Family Provider Family Medicine; PCP Family Medicine; Referring Provider Family Medicine; Visit Provider Family Medicine | DX: M85.89 Other specified disorders of bone density and structure, multiple sites (principal); Z78.0 Asymptomatic menopausal state; E21.3 Hyperparathyroidism, unspecified; Z90.710 Acquired absence of both cervix and uterus; Z79.890 Hormone replacement therapy | CPT/HCPCS: 77080 ==

== ENCOUNTER → 2022-09-29 14:09 | Outpatient (CLI) | payer MEDICARE, SELFPAY ==
[2022-10-02 10:36] LABS: Chromogranin A, Serum 107.9 ng/mL (0.0-101.8)
[2022-10-03 20:07] LABS: Pancreatic Elastase, Fecal 182 (>200)
== END ==
PROVIDERS: Family Provider Family Medicine; PCP Family Medicine; Referring Provider Internal Medicine Gastroenterology; Visit Provider Internal Medicine Gastroenterology
DX: R19.7 Diarrhea, unspecified (principal)
CPT/HCPCS: 36415; 82656; 82710; 86316

== ENCOUNTER → 2022-12-08 10:31 | Outpatient (CLI) | payer MEDICARE, SELFPAY ==
[2022-12-08 11:13] LABS: Estimated Glomerular Filt Rate > 60 mL/min (>60)
--- NOTE | 2022-12-08 12:17 | DI.CT.S_ITS ---
PROCEDURE: CT ABDOMEN PELVIS W CON INDICATIONS: Generalized abdominal pain TECHNIQUE: After the administration of oral and intravenous contrast, axial sections were acquired from the lung bases to the pubic symphysis. Coronal and sagittal reformats were performed. For radiation dose reduction, the following was used: automated exposure control, adjustment of mA and/or kV according to patient size. COMPARISON:None. FINDINGS: Lung bases: No pleural effusion. ABDOMEN: Liver: Subcentimeter hypodensity anterior left lobe is too small to characterize, could possibly represent a tiny cyst or hemangioma. Gallbladder: Unremarkable. Biliary ducts: Unremarkable. Pancreas: Unremarkable. Spleen: Unremarkable. Adrenal Glands: Unremarkable. Kidneys and Ureters: No hydronephrosis. Stomach and Bowel: No bowel obstruction. Distal colonic anastomosis. Mild colonic diverticulosis without evidence of acute diverticulitis. Peritoneum: No abnormal intraperitoneal fluid. No free air. Abdominal Nodes: No retroperitoneal or mesenteric adenopathy by size criteria. Vessels: Aorta and inferior vena cava are normal in size. PELVIS: Pelvic Organs: The uterus is not visualized and is presumed surgically absent. Bladder: Small, approximately 3 mm calcification within the urinary bladder (for example 5/47) Pelvic Nodes: No enlarged lymph nodes. Bones: Multilevel degenerative change of the visualized spine. IMPRESSION: 1. A 3 mm calcification within the urinary bladder could represent a small stone or nonspecific wall calcification. 2. Otherwise, no potential acute abnormalities identified within the abdomen or pelvis. Dictated by: Talha Zavala M.D. on 12/08/2022 at 16:17 Approved by: Talha Zavala M.D. on 12/08/2022 at 17:00
== END ==
PROVIDERS: Family Provider Family Medicine; PCP Family Medicine; Referring Provider Radiology Diagnostic Radiology; Visit Provider Radiology Diagnostic Radiology
DX: R19.7 Diarrhea, unspecified (principal); R10.84 Generalized abdominal pain; N32.89 Other specified disorders of bladder
CPT/HCPCS: 36415; 74177; 82565; Q9967

== ENCOUNTER → 2023-12-31 14:14 | Outpatient (CLI) | payer MEDICARE, OTHER, SELFPAY ==
--- NOTE | 2023-12-31 14:17 | DI.RAD.S_ITS ---
PROCEDURE: XR DEXA AXIAL SKELETON INDICATIONS: BONE DENSITY COMPARISON: [facility], CR, XR DEXA AXIAL SKELETON, 11/28/2021, 15:32. FINDINGS: Lumbar Spine: Bone mineral density 0.852 g/cm2, T score -1.8. There is interval 2.2 percent increase in total lumbar spine bone mineral density. Left Hip: Bone mineral density 0.802 g/cm2, T score -1.2. There is interval 0.3 percent increase in left total hip bone mineral density. Left Femoral Neck: Bone mineral density 0.649 g/cm2, T score -1.8. There is interval 0.8 percent increase in left femoral neck bone mineral density. Right Hip: Bone mineral density 0.758 g/cm2, T score -1.5. There is interval 0.8 percent decrease in right total hip bone mineral density. Right Femoral Neck: Bone mineral density 0.605 g/cm2, T score -2.2. There is interval 4.8 percent decrease in right femoral neck bone mineral density Fracture Risk Calculation (when applicable): 10-year fracture risk of a major osteoporotic fracture 16 percent and of a hip fracture 5.4 percent. (T score greater or equal to -1.0 to: NORMAL) (T score from -1.1 to -2.4: OSTEOPENIA) (T score less than or equal to -2.5: OSTEOPOROSIS) IMPRESSION: Osteopenia with increased 10 year fracture risk as above. Follow-up guidelines as follows: Osteoporosis: Consider a repeat DEXA and Vertebral Fracture Assessment (VFA) exam in 2 years or sooner if medically necessary, to reassess this patient's status. Osteopenia: Consider a repeat DEXA in 2-3 years to reassess this patient's status, or if there is a new clinical indication. Normal: Consider a repeat DEXA in 5 years or sooner, or if there is a new clinical indication. All treatment decisions require clinical judgment and consideration of individual patient factors, including patient preferences, comorbidities, previous drug use, risk factors not captured in the FRAX model (e.g., frailty, falls, vitamin D deficiency, increased bone turnover, interval significant decline in bone density ) and possible under- or over-estimation of fracture risk by FRAX. In addition, the NOF Guide recommends that FDA-approved medical therapies be considered in postmenopausal women and men age >= 50 years with a: * Hip or vertebral (clinical or morphometric) fracture * T-score of <=-2.5 at the spine or hip * Ten-year fracture probability by FRAX of >= 3% for hip fracture or >=20% for major osteoporotic fracture. People with diagnosed cases of osteoporosis or at high risk for fracture should have regular bone mineral density tests. For patients eligible for Medicare, routine testing is allowed once every 2 years. The testing frequency can be increased to one year for patients who have rapidly progressing disease, those who are receiving or discontinuing medical therapy to restore bone mass, or have additional risk factors. Dictated by: Ralf Stack M.D. on 12/31/2023 at 17:57 Approved by: Ralf Stack M.D. on 12/31/2023 at 17:59
== END ==
LOC: RAD 14:17
PROVIDERS: Family Provider Family Medicine; PCP Family Medicine; Referring Provider Family Medicine; Visit Provider Family Medicine
DX: M85.89 Other specified disorders of bone density and structure, multiple sites (principal)
CPT/HCPCS: 77080

== ENCOUNTER → 2024-01-25 08:25 | Outpatient (CLI) | payer MEDICARE, OTHER, SELFPAY ==
--- NOTE | 2024-01-25 08:27 | DI.RAD.S_ITS ---
PROCEDURE: FL UPPER GI SERIES INDICATIONS: NAUSEA / COUGH / GLOBUS SENSATION COMPARISON: None. FINDINGS: KUB: Preprocedural coil tester film demonstrates a normal bowel gas pattern. Phleboliths are noted. Visualized solid organ contours appear normal. Bony structures appear unremarkable. Esophagus: Esophageal mucosa is unremarkable on air-contrast views. Tertiary esophageal contractions noted.. No strictures, extrinsic mass effects, or diverticula. No hiatal hernia or elicited gastroesophageal reflux. There is delayed transit of a calibrated barium tablet through the esophagus. Stomach: The stomach is normally distensible, with normal rugal fold thickness. No mucosal masses or ulcers identified. Pylorus and duodenal bulb appear unremarkable in morphology. Duodenal folds are normal in thickness as well. Fluoro time 3.4 minutes, 26 images. IMPRESSION: Tertiary esophageal contractions Delayed transit of barium pill into the stomach. If clinical suspicion persists, endoscopy may further evaluate Dictated by: Paco Mcdonnell M.D. on 01/25/2024 at 10:42 Approved by: Paco Mcdonnell M.D. on 01/25/2024 at 10:44
== END ==
PROVIDERS: Family Provider Family Medicine; PCP Family Medicine; Referring Provider Family Medicine; Visit Provider Family Medicine
DX: R13.13 Dysphagia, pharyngeal phase (principal); R10.13 Epigastric pain; R05.2 Subacute cough
CPT/HCPCS: 74240

== ENCOUNTER → 2025-04-25 11:59 | Outpatient (CLI) | payer MEDICARE, OTHER, SELFPAY ==
--- NOTE | 2025-04-25 12:03 | DI.RAD.S_ITS ---
PROCEDURE: XR KNEE LT 3V
== END ==
PROVIDERS: Family Provider Family Medicine; PCP Family Medicine; Referring Provider Family Medicine; Visit Provider Family Medicine
DX: M17.12 Unilateral primary osteoarthritis, left knee (principal); M25.462 Effusion, left knee; M25.561 Pain in right knee
CPT/HCPCS: 73562